=== PATIENT | female | born 1935 | race Caucasian/White ===

== ENCOUNTER → 2016-09-01 | Outpatient (CLI) | payer OTHER ==
[~2016-09-01] MED LIST: ASPEC81 PO; CALC200T PO; GABA-112 PO; LACT3000 PO; MECL1TAB40 PO; OMEG10007 PO; PRLSR20 PO; SIMV40TA2 PO; TRAM-10 PO
--- NOTE | 2016-09-01 13:01 | DIAGNOSTIC IMAGING REPORT ---
ULTRASOUND LEFT VENOUS DOPP LOWER EXT UNILAT CLINICAL HISTORY: Left leg pain and swelling COMPARISON STUDY: No previous studies for comparison. FINDINGS: Real-time and color flow Doppler imaging were performed. Flow was seen within the femoral, popliteal and calf veins with no intraluminal thrombus demonstrated. The saphenous vein is patent. IMPRESSION: No evidence of left lower extremity DVT. Electronically signed by: Ruddy Garcia M.D. 09/01/2016 1:00 PM Dictated Date/Time: 09/01/2016 1:00 PM
== END | disposition home or self-care (01) ==
LOC: C.ULTRBC 12:31
PROVIDERS: ATTEND Internal Medicine
DX: M79.662 Pain in left lower leg (principal)

== ENCOUNTER 2018-01-19 09:03 | Observation (INO) | payer OTHER ==
[~2018-01-19] VITALS: Ht 149.9 cm; Wt 59.7 kg
[~2018-01-19 09:03] MED LIST changes: -OMEG10007 PO
--- NOTE | 2018-01-19 09:44 | EMERGENCY ROOM VISIT NOTE ---
History Report prepared by Kevin: Marlee Maldonado Under the Supervision of: Dr. Jon Donahue M.D. First contact with patient: 09:34 Chief Complaint: CARDIAC ASSESSMENT Stated Complaint: CHEST PRESSURE History of Present Illness The patient is a 82 year old female who presents to the Emergency Room with complaints of an episode of chest pain beginning yesterday. She notes the pain began her chest, and extended up around her shoulder to her shoulder blade. The patient describes the pain as a pinching feeling, and states it began while she was walking from her car to her house. She notes she also felt a little "fuzzy" . She denies any current chest pain. The patient reports nitroglycerin mostly resolved her symptoms. She is currently not experiencing any chest pain. The patient was seen by her PCP, Dr. Del Angel, this morning, who referred her to the ED. She reports she was given 4 baby Aspirin at the office this morning. The patient states she did not take her blood pressure medicine or any other medicine this morning. She notes history of a stent put in 6 years ago, by Dr. Arnel Wan. She notes she does not currently take any blood thinners. Source of History: patient, family (daughters) Onset: yesterday Position: chest Quality: other (pinching) Timing: other (episode) Modifying Factors (Relieving): other (nitroglycerin) Note: Associated symptom: feeling "fuzzy" Review of Systems See HPI for pertinent positives & negatives. A total of 10 systems reviewed and were otherwise negative. Past Medical & Surgical Medical Problems: (1) Arthritis (2) Atypical chest pain (3) Chronic back pain (4) DIVERTICULOSIS COLON (W/O MENT OF HEMORRHAGE) (5) Gastroesophageal reflux disease (6) Hyperlipidemia (7) Hypothyroidism (8) Idiopathic osteoporosis (9) Lumbar disc lesion (10) Megaloblastic anemia due to vitamin B>12< deficiency (11) negative cardiac cath (12) Rectal prolapse Surgical Problems: (1) History of cholecystectomy Family History Heart disease Hypertension Social History Smoking Status: Never Smoker Alcohol Use: occasionally Drug Use: none Marital Status: Housing Status: lives with family Occupation Status: unemployed Current/Historical Medications Scheduled Aspirin (Aspirin Ec), 81 MG PO DAILY Calcium Carbonate-Vitamin D (Oscal 500/200 D-3), 1 TAB PO DAILY Fish Oil ([place]-3), 1 CAP PO QAM Gabapentin (Neurontin), 200 MG PO BID Omeprazole (Prilosec), 20 MG PO BID Simvastatin (Zocor), 40 MG PO HS Tramadol (Ultram), 50 MG PO Q6HR PRN Scheduled PRN Lactase (Lactaid), 1 CAP PO WM PRN for LACTOSE INTOLERANCE Meclizine Hcl (Meclizine Hcl), 12.5 MG PO Q6 PRN for Dizziness or Vertigo Allergies Coded Allergies: Lactose Intolerance (GI) (Unverified Allergy, Unknown, ., 01/19/18) Prednisone (Unverified Allergy, Unknown, DIZZY, "LOOPY", 01/19/18) Physical Exam Vital Signs Date Time Temp Pulse Resp B/P (MAP) Pulse Ox O2 Delivery O2 Flow Rate FiO2 01/19/18 11:27 64 18 142/76 92 Room Air 01/19/18 10:37 58 18 152/61 95 Room Air 01/19/18 09:57 96 Room Air 01/19/18 09:49 96 Room Air 01/19/18 09:31 64 01/19/18 09:21 96 Room Air 01/19/18 09:09 36.6 57 18 195/75 98 Room Air Physical Exam GENERAL: Awake, alert, well-appearing, in no acute distress HENT: Normocephalic, atraumatic. Oropharynx unremarkable. EYES: Normal conjunctiva. Sclera non-icteric. NECK: Supple. No nuchal rigidity. FROM. No JVD. RESPIRATORY: Clear to auscultation. CARDIAC: Regular rate, normal rhythm. Extremities warm and well perfused. Pulses equal. ABDOMEN: Soft, non-distended. No tenderness to palpation. No rebound or guarding. No masses. RECTAL: Deferred. MUSCULOSKELETAL: Chest examination reveals no tenderness. The back is symmetrical on inspection without obvious abnormality. There is no CVA tenderness to palpation. No joint edema. LOWER EXTREMITIES: Calves are equal size bilaterally and non-tender. No edema. No discoloration. NEURO: Normal sensorium. No sensory or motor deficits noted. SKIN: No rash or jaundice noted. Medical Decision & Procedures ER Provider Diagnostic Interpretation: Radiology results as stated below per my review and radiologist interpretation: SINGLE VIEW CHEST CLINICAL HISTORY: Atypical chest pain. FINDINGS: An AP, portable, upright chest radiograph is compared to study dated 02/16/2014 and correlated with chest CT dated 03/04/2011. The examination is degraded by portable technique and apical lordotic positioning. The heart is enlarged and there is atherosclerotic calcification of the thoracic aorta. The pulmonary vasculature is noncongested. Chronic interstitial thickening is similar to previous. No airspace consolidation or large pleural effusion is identified. No pneumothorax is seen. The skeletal structures are osteopenic. The bony thorax is grossly intact. Cholecystectomy clips are seen in the right upper quadrant. IMPRESSION: Cardiomegaly with no acute cardiopulmonary abnormality. Electronically signed by: Vinny Bazzi M.D. 01/19/2018 10:19 AM Dictated Date/Time: 01/19/2018 10:18 AM Laboratory Results Test 01/19/18 10:31 Immature Granulocyte % (Auto) 0.1 % White Blood Count 7.02 K/uL (4.8-10.8) Red Blood Count 4.08 M/uL (4.2-5.4) Hemoglobin 11.3 g/dL (12.0-16.0) Hematocrit 33.8 % (37-47) Mean Corpuscular Volume 82.8 fL (80-100) Mean Corpuscular Hemoglobin 27.7 pg (25-34) Mean Corpuscular Hemoglobin Concent 33.4 g/dl (32-36) Platelet Count 237 K/uL (130-400) Mean Platelet Volume 10.2 fL (7.4-10.4) Neutrophils (%) (Auto) 52.8 % Lymphocytes (%) (Auto) 34.9 % Monocytes (%) (Auto) 6.3 % Eosinophils (%) (Auto) 5.6 % Basophils (%) (Auto) 0.3 % Neutrophils # (Auto) 3.71 K/uL (1.4-6.5) Lymphocytes # (Auto) 2.45 K/uL (1.2-3.4) Monocytes # (Auto) 0.44 K/uL (0.11-0.59) Eosinophils # (Auto) 0.39 K/uL (0-0.5) Basophils # (Auto) 0.02 K/uL (0-0.2) Immature Granulocyte # (Auto) 0.01 K/uL (0.00-0.02) Platelet Estimate NORMAL Total Bilirubin 0.3 mg/dl (0.2-1) Direct Bilirubin 0.1 mg/dl (0-0.2) Aspartate Amino Transf (AST/SGOT) 13 U/L (15-37) Alanine Aminotransferase (ALT/SGPT) 14 U/L (12-78) Alkaline Phosphatase 60 U/L (45-117) Total Creatine Kinase 57 U/L (26-192) Creatine Kinase MB 1.6 ng/ml (0.5-3.6) Creatine Kinase MB Ratio 2.8 (0-3.0) Total Protein 6.8 gm/dl (6.4-8.2) Albumin 3.4 gm/dl (3.4-5.0) Lipase 126 U/L (73-393) Labs reviewed by ED physician. Medications Administered Medications (Trade) Dose Ordered Sig/Ilya Route Start Time Stop Time Status Last Admin Dose Admin Nitroglycerin (Nitrostat Tab) 0.4 mg PRN STAT SL 01/19/18 09:45 01/19/18 09:47 DC 01/19/18 09:45 0.4 MG ECG Per My Interpretation Indication: chest pain Rate (beats per minute): 66 Rhythm: normal sinus Findings: T-wave inversion (Lateral), other (no ST elevation. no ST depression. ) Change: no significant change (from 02/27/2014) ED Course 0936: Past medical records reviewed. The patient was evaluated in room C1A. A complete history and physical examination was performed. 1125: I discussed the patient's case with Shi Matt PA-C, [facility] hospitalist. She has agreed to evaluate the patient for further management and care. 1126: I updated the patient and her daughters. They agree with the treatment plan. 1142: I discussed the case with Dr. Seals, [facility] cardiology. He agrees with the current treatment plan. Medical Decision Differential diagnosis: Etiologies such as cardiac ischemia, aortic dissection, pulmonary embolism, pneumonia, pneumothorax, musculoskeletal, infections, pericarditis, myocarditis , esophageal rupture, gastrointestinal, as well as others were entertained. This is an 82-year-old female with a history of a cardiac stent presents emergency department with chest pain that was relieved by nitro. She has a normal CK-MB and troponin as well as EKG. Based on these findings I did discuss the case with the hospitalist service who agreed to admit the patient. Patient and family were in agreement with the treatment plan. Medication Reconcilliation Current Medication List: was personally reviewed by me Blood Pressure Screening Patient's blood pressure: Elevated blood pressure Blood pressure disposition: Referred to PCP (referred to hospitalist) Consults Time Called: 1115 Consulting Physician: Shi Matt PA-C, [facility] hospitalist Returned Call: 1125 I discussed the patient's case with Shi Matt PA-C, [facility] hospitalist. She has agreed to evaluate the patient for further management and care. Additional Consults: Time Called: 1130 Consulted Physician: [facility] Returned Call: 1142 Additional Comments: I discussed the case with [facility] cardiology. He agrees with the current treatment plan. Impression Primary Impression: Chest pain Scribe Attestation The scribe's documentation has been prepared under my direction and personally reviewed by me in its entirety. I confirm that the note above accurately reflects all work, treatment, procedures, and medical decision making performed by me. Departure Information Dispostion Being Evaluated By Hospitalist Referrals Seamus Del Angel D.O. (PCP) Patient Instructions My [facility] Problem Qualifiers Primary Impression: Chest pain Chest pain type: unspecified Qualified Codes: R07.9 - Chest pain, unspecified
[2018-01-19] MEDS ORDERED: NITROGLYCERIN 0.4 MG SL PER TAB CHARGE SL STA (09:45)
[2018-01-19] MEDS ORDERED: ASPI81TA28 PO (10:21)
--- NOTE | 2018-01-19 10:21 | DIAGNOSTIC IMAGING REPORT ---
SINGLE VIEW CHEST CLINICAL HISTORY: Atypical chest pain. FINDINGS: An AP, portable, upright chest radiograph is compared to study dated 02/16/2014 and correlated with chest CT dated 03/04/2011. The examination is degraded by portable technique and apical lordotic positioning. The heart is enlarged and there is atherosclerotic calcification of the thoracic aorta. The pulmonary vasculature is noncongested. Chronic interstitial thickening is similar to previous. No airspace consolidation or large pleural effusion is identified. No pneumothorax is seen. The skeletal structures are osteopenic. The bony thorax is grossly intact. Cholecystectomy clips are seen in the right upper quadrant. IMPRESSION: Cardiomegaly with no acute cardiopulmonary abnormality. Electronically signed by: Vinny Bazzi M.D. 01/19/2018 10:19 AM Dictated Date/Time: 01/19/2018 10:18 AM
[2018-01-19 11:07] LABS: ALBUMIN 3.4 gm/dl (3.4-5.0); ALKALINE PHOSPHATASE 60 U/L (45-117); ALT/SGPT 14 U/L (12-78); AST/SGOT 13 U/L (15-37); BLOOD UREA NITROGEN 17 mg/dl (7-18); CALCIUM 8.5 mg/dl (8.5-10.1); CARBON DIOXIDE 27 mmol/L (21-32); CKMB 1.6 ng/ml (0.5-3.6); CREATININE 0.72 mg/dl (0.60-1.20); GLUCOSE 101 mg/dl (70-99); LIPASE 126 U/L (73-393); POTASSIUM 4.4 mmol/L (3.5-5.1); SODIUM 142 mmol/L (136-145); TOTAL PROTEIN 6.8 gm/dl (6.4-8.2)
[2018-01-19 11:08] LABS: HEMATOCRIT 33.8 % (37-47); HEMOGLOBIN 11.3 g/dL (12.0-16.0); MEAN CELL VOLUME 82.8 fL (80-100); MEAN CORPUSCULAR HEMOGLOBIN 27.7 pg (25-34); MEAN CORPUSCULAR HGB CONC 33.4 g/dl (32-36); MEAN PLATELET VOLUME 10.2 fL (7.4-10.4); PLATELET COUNT 237 K/uL (130-400); RED CELL DISTRIBUTION WIDTH CV 13.4 % (11.5-14.5); RED CELL DISTRIBUTION WIDTH SD 40.6 fL (36.4-46.3); WHITE BLOOD COUNT 7.02 K/uL (4.8-10.8)
[2018-01-19 11:12] LABS: BASO % 0.3 %; BASO ABS # 0.02 K/uL (0-0.2); EOS % 5.6 %; EOS ABS # 0.39 K/uL (0-0.5); IG# 0.01 K/uL (0.00-0.02); LYMPH % 34.9 %; LYMPH ABS # 2.45 K/uL (1.2-3.4); MONO % 6.3 %; MONO ABS # 0.44 K/uL (0.11-0.59); NEUT % 52.8 %; NEUT ABS # 3.71 K/uL (1.4-6.5)
[2018-01-19 11:38] VITALS: O2SAT 93; BMI 27.0
[2018-01-19 12:08] VITALS: BP 177/70; PULSE 82; TEMP 36.4; O2SAT 93; Ht 149.9 cm; Wt 59.7 kg
[2018-01-19] MEDS ORDERED: IV FLUIDS COMPLETED PRN (13:45)
[2018-01-19] MEDS ORDERED: ACETAMINOPHEN 325 MG TAB PO PRN (14:45)
[2018-01-19] MEDS ORDERED: NITROGLYCERIN 0.4 MG SL PER TAB CHARGE SL PRN (14:45)
[2018-01-19] MEDS ORDERED: ONDANSETRON INJ 2 MG/ML 2 ML VIAL IV PRN (14:45)
[2018-01-19 14:51] VITALS: BP 162/70; PULSE 62; TEMP 36.6; O2SAT 96
--- NOTE | 2018-01-19 14:59 | History and Physical ---
History & Physical Date & Time of Service: Jan 19, 2018 at 14:43 Chief Complaint: Chest Pain Primary Care Physician: Seamus Del Angel D.O. History of Present Illness Source: patient She is an 82-year-old female with a significant past medical history of hypertension, hyperlipidemia, osteoarthritis, vitamin B12 deficiency anemia and Carotid stenosis apparently has been complaining of chest pain that happened once last night. She was not doing anything physical but got the precordial pain which was sharp and lasted for a few seconds. Pain radiated to the back and did have some shortness of breath with it the pain is relieved by sublingual nitro 1. She went to see her primary care doctor today and with the symptoms and questionable EKG changes she was advised for admission. Denies to have any more pain since last night and no other associated symptoms Past Medical/Surgical History Medical Problems: (1) Arthritis (2) Benign essential hypertension (3) Chest pain (4) Chronic back pain (5) DIVERTICULOSIS COLON (W/O MENT OF HEMORRHAGE) (6) Dizziness (7) Dizziness (8) Dizziness (9) Dizziness (10) Dyslipidemia (11) Gastroesophageal reflux disease (12) Hyperlipidemia (13) Hypertension (14) Hypertension (15) Hypomagnesemia (16) Hypothyroidism (17) Idiopathic osteoporosis (18) Localized, primary osteoarthritis of the shoulder region (19) Lumbar disc lesion (20) Megaloblastic anemia due to vitamin B>12< deficiency (21) mild LAD disease (22) negative cardiac cath (23) Non-toxic multinodular goiter (24) Rectal prolapse (25) SHORTNESS OF BREATH (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 Surgical Problems: (1) History of cholecystectomy Family History Heart disease Hypertension Social History Smoking Status: Never Smoker Smokeless Tobacco Use: No Alcohol Use: none Drug Use: none Marital Status: Housing status: lives with family Occupational Status: unemployed Immunizations History of Influenza Vaccine: Yes History of Tetanus Vaccine?: Yes History of Pneumococcal: Yes History of Hepatitis B Vaccine: No Allergies Coded Allergies: Lactose Intolerance (GI) (Unverified Allergy, Unknown, ., 01/19/18) Prednisone (Unverified Allergy, Unknown, DIZZY, "LOOPY", 01/19/18) Home Medications Scheduled Aspirin (Aspirin Ec), 81 MG PO DAILY Calcium Carbonate-Vitamin D (Oscal 500/200 D-3), 1 TAB PO DAILY Fish Oil ([place]-3), 1 CAP PO QAM Gabapentin (Neurontin), 200 MG PO BID Omeprazole (Prilosec), 20 MG PO BID Simvastatin (Zocor), 40 MG PO HS Tramadol (Ultram), 50 MG PO Q6HR PRN Scheduled PRN Lactase (Lactaid), 1 CAP PO WM PRN for LACTOSE INTOLERANCE Meclizine Hcl (Meclizine Hcl), 12.5 MG PO Q6 PRN for Dizziness or Vertigo Review of Systems Constitutional: + problem reported (Sharp precordial pain for a few seconds last night) Cardiovascular: + chest pain Musculoskeletal: + joint pain (Back pain) Psychiatric: + anxiety Physical Exam Vital Signs Date Time Temp Pulse Resp B/P (MAP) Pulse Ox O2 Delivery O2 Flow Rate FiO2 01/19/18 12:08 36.4 82 18 177/70 (105) 93 Room Air 01/19/18 12:08 36.4 82 18 177/70 93 Room Air 01/19/18 12:08 93 Room Air 01/19/18 11:38 93 Room Air 01/19/18 11:27 64 18 142/76 92 Room Air 01/19/18 10:37 58 18 152/61 95 Room Air 01/19/18 09:57 96 Room Air 01/19/18 09:49 96 Room Air 01/19/18 09:31 64 01/19/18 09:21 96 Room Air 01/19/18 09:09 36.6 57 18 195/75 98 Room Air General Appearance: no apparent distress Head: normocephalic Eyes: normal inspection ENT: normal ENT inspection Neck: supple Respiratory/Chest: chest non-tender, lungs clear, normal breath sounds Cardiovascular: regular rate, rhythm, no edema, no murmur, normal peripheral pulses Abdomen/GI: normal bowel sounds Back: normal inspection Extremities/Musculoskelatal: normal inspection, no pedal edema Neurologic/Psych: [employer] II-XII nml as tested, no motor/sensory deficits, alert, oriented x 3 Skin: normal color Diagnostics Laboratory Results Results Past 24 Hours Test 01/19/18 10:31 Range/Units White Blood Count 7.02 4.8-10.8 K/uL Red Blood Count 4.08 4.2-5.4 M/uL Hemoglobin 11.3 12.0-16.0 g/dL Hematocrit 33.8 37-47 % Mean Corpuscular Volume 82.8 80-100 fL Mean Corpuscular Hemoglobin 27.7 25-34 pg Mean Corpuscular Hemoglobin Concent 33.4 32-36 g/dl Platelet Count 237 130-400 K/uL Mean Platelet Volume 10.2 7.4-10.4 fL Neutrophils (%) (Auto) 52.8 % Lymphocytes (%) (Auto) 34.9 % Monocytes (%) (Auto) 6.3 % Eosinophils (%) (Auto) 5.6 % Basophils (%) (Auto) 0.3 % Neutrophils # (Auto) 3.71 1.4-6.5 K/uL Lymphocytes # (Auto) 2.45 1.2-3.4 K/uL Monocytes # (Auto) 0.44 0.11-0.59 K/uL Eosinophils # (Auto) 0.39 0-0.5 K/uL Basophils # (Auto) 0.02 0-0.2 K/uL RDW Standard Deviation 40.6 36.4-46.3 fL RDW Coefficient of Variation 13.4 11.5-14.5 % Immature Granulocyte % (Auto) 0.1 % Immature Granulocyte # (Auto) 0.01 0.00-0.02 K/uL Platelet Estimate NORMAL Sodium Level 142 136-145 mmol/L Potassium Level 4.4 3.5-5.1 mmol/L Chloride Level 109 98-107 mmol/L Carbon Dioxide Level 27 21-32 mmol/L Anion Gap 6.0 3-11 mmol/L Blood Urea Nitrogen 17 7-18 mg/dl Creatinine 0.72 0.60-1.20 mg/dl Est Creatinine Clear Calc Drug Dose 49.4 ml/min Estimated GFR () 91.7 Estimated GFR (Non- 79.1 BUN/Creatinine Ratio 23.8 10-20 Random Glucose 101 70-99 mg/dl Calcium Level 8.5 8.5-10.1 mg/dl Total Bilirubin 0.3 0.2-1 mg/dl Direct Bilirubin 0.1 0-0.2 mg/dl Aspartate Amino Transf (AST/SGOT) 13 15-37 U/L Alanine Aminotransferase (ALT/SGPT) 14 12-78 U/L Alkaline Phosphatase 60 45-117 U/L Total Creatine Kinase 57 26-192 U/L Creatine Kinase MB 1.6 0.5-3.6 ng/ml Creatine Kinase MB Ratio 2.8 0-3.0 Troponin I < 0.015 0-0.045 ng/ml Total Protein 6.8 6.4-8.2 gm/dl Albumin 3.4 3.4-5.0 gm/dl Lipase 126 73-393 U/L CXR normal EKG Bradycardia ,SR with Inferior Ischemic change Impression Assessment and Plan Atypical chest pain: 1 episode yesterday Possible inferior ischemic changes on EKG without any elevation of troponin Admitted to telemetry unit Serial cardiac enzymes Schedule dobutamine stress echo tomorrow morning Hypertension Continue current medications Blood pressure seems to be stable Hyperlipidemia Continue with the statin Carotid artery disease No acute symptoms Continue aspirin Chronic back pain No acute radiculopathy Cannot walk on a treadmill so he get dobutamine stress echo tomorrow DVT prophylaxis with the subcu heparin CODE STATUS: Full In my clinical assessment the beneficially meets criteria as per CMS for 2 midnight stay in the hospital Advanced Directives Existing Living Will: Yes Existing Power of [employer] Specialist: Yes Resuscitation Status Full Code VTE Prophylaxis Will order VTE Prophylaxis: Yes
[2018-01-19] MEDS ORDERED: LACTASE 3000 UNIT TAB PO PRN (15:15)
[2018-01-19] MEDS ORDERED: MECLIZINE HCL 12.5 MG TAB PO PRN (15:15)
[2018-01-19] MEDS ORDERED: TRAMADOL HCL 50 MG TAB PO PRN (15:15)
[2018-01-19 15:59] LABS: PTT PATIENT 26.3 SECONDS (21.0-31.0)
[2018-01-19] MEDS ORDERED: PNEUMOCOCCAL ADMINISTRATION CHARGE ONE (16:00)
[2018-01-19] MEDS ORDERED: PNEUMOCOCCAL POLYSACCHARIDES 25 MCG/0.5 ML VIAL/SYR IM. ONE (16:00)
[2018-01-19] MEDS ORDERED: OMEG10007 PO (16:15)
[2018-01-19] MEDS ORDERED: AMLODIPINE BESYLATE 5 MG TAB PO ONE (19:45)
[2018-01-19] MEDS ORDERED: CLONIDINE HCL 0.1 MG TAB PO PRN (19:45)
[2018-01-19 20:13] VITALS: BP 182/70; PULSE 62; TEMP 36.7; O2SAT 96
[2018-01-19 20:26] VITALS: BP 194/47; PULSE 66
[2018-01-19] MEDS: PANTOprazole SOD 40 MG TAB PO SCH (20:51)
[2018-01-19] MEDS: GABAPENTIN 100 MG CAP PO SCH (20:51)
[2018-01-19] MEDS: HEPARIN SOD 5000 UNIT/0.5 ML CARP SQ SCH (20:55)
[2018-01-19] MEDS ORDERED: SIMVASTATIN 40 MG TAB PO SCH (21:00)
[2018-01-19 23:30] VITALS: BP 156/80; PULSE 52; TEMP 36.7; O2SAT 97
[2018-01-20 04:02] VITALS: BP 124/65; PULSE 66; TEMP 36.6; O2SAT 96
[2018-01-20 04:42] LABS: HEMATOCRIT 34.7 % (37-47); HEMOGLOBIN 11.4 g/dL (12.0-16.0); MEAN CELL VOLUME 83.8 fL (80-100); MEAN CORPUSCULAR HEMOGLOBIN 27.5 pg (25-34); MEAN CORPUSCULAR HGB CONC 32.9 g/dl (32-36); PLATELET COUNT 211 K/uL (130-400); RED CELL DISTRIBUTION WIDTH CV 13.3 % (11.5-14.5); RED CELL DISTRIBUTION WIDTH SD 40.4 fL (36.4-46.3); WHITE BLOOD COUNT 6.96 K/uL (4.8-10.8)
[2018-01-20 05:09] LABS: BLOOD UREA NITROGEN 19 mg/dl (7-18); CALCIUM 8.3 mg/dl (8.5-10.1); CARBON DIOXIDE 26 mmol/L (21-32); CREATININE 0.72 mg/dl (0.60-1.20); GLUCOSE 109 mg/dl (70-99); POTASSIUM 3.7 mmol/L (3.5-5.1); SODIUM 139 mmol/L (136-145)
[2018-01-20] MEDS: HEPARIN SOD 5000 UNIT/0.5 ML CARP SQ SCH ×2 (06:32→14:00)
[2018-01-20 07:22] VITALS: BP 118/64; PULSE 65; TEMP 36.5; O2SAT 99
[2018-01-20] MEDS: GABAPENTIN 100 MG CAP PO SCH (07:25)
[2018-01-20] MEDS: PANTOprazole SOD 40 MG TAB PO SCH (07:26)
[2018-01-20] MEDS ORDERED: CALCIUM 600MG + VIT D 400 IU TAB PO SCH (09:00)
[2018-01-20] MEDS ORDERED: LISINOPRIL 5 MG TAB PO SCH (09:00)
[2018-01-20] MEDS ORDERED: ASPIRIN 81 MG ECTAB PO SCH (09:00)
[2018-01-20] MEDS ORDERED: ATROPINE SULFATE 0.1 MG/ML 10 ML SYR ONE (09:13)
[2018-01-20] MEDS ORDERED: METOPROLOL TARTRATE 1 MG/ML VIAL ONE (09:13)
[2018-01-20] MEDS ORDERED: DOBUTamine HCL 12.5 MG/ML 20 ML VIAL ONE (09:13)
[2018-01-20 11:44] VITALS: BP_SYST 100; BP_SYST 129; BP_DIAS 63; BP_DIAS 65; PULSE 54; TEMP 36.5; O2SAT 99
--- NOTE | 2018-01-20 12:36 | DOBUTAMINE ECHO ---
*NOTICE TO RECEIVING [employer] This information is strictly Confidential and protected under [place] law. [place] law prohibits you from making any further disclosure of this information unless further disclosure is expressly permitted by the written consent of the person to whom it pertains or is authorized by law. A general authorization for the release of medical or other information is not sufficient for this purpose. Hospital accepts no responsibility if the information is made available to any other person, INCLUDING THE PATIENT. Interpretation Summary * Name: SIMRAN CHAU Study Date: 01/20/2018 09:32 AM BP: 124/52 mmHg * Patient Location: [facility] HR: 53 * : 1935 (M/d/yyyy) Gender: Female Height: 59 in * Age: 82 yrs Ethnicity: CA Weight: 133 lb * Ordering Physician: SAL REED MD * Performed By: Irasema Hanson RCS * * Reason For Study: CHEST PAIN * BSA: 1.6 m2 * -- Conclusions -- * There is an adequate heart rate and blood pressure response to dobutamine stress achieving greater than 85% age-predicted maximum heart rate * Stress ECG: No ST changes. No arrhythmias. * Arrhythmia induced during stress: occasional PVC's. * There is subtle hypokinesis of the inferior wall at the base at rest. All wall segments are hyperdynamic with stress including the inferior wall without stress-induced abnormality to suggest ischemia * The left ventricular ejection fraction increases normally with stress. The left ventricular end-systolic cavity size reduces post-stress (normal response). The left ventricular wall motion with stress is normal. * There is moderate concentric left ventricular hypertrophy. * Left ventricular systolic function is normal. * Ejection Fraction = 60-65%. * Aortic valve sclerosis mild, without significant aortic valvular stenosis. Procedure Details * DOBUTAMINE ECHO, CPT#[id number] * ECHO COLOR FLOW, CPT #[id number] * ECHO DOPPLER, CPT #[id number] Left Ventricle * The left ventricle is normal in size. * There is moderate concentric left ventricular hypertrophy. * Left ventricular systolic function is normal. * Ejection Fraction = 60-65%. * The left ventricular ejection fraction increases normally with stress. The left ventricular end-systolic cavity size reduces post-stress (normal response). The left ventricular wall motion with stress is normal. * There is subtle hypokinesis of the inferior wall at the base at rest. All wall segments are hyperdynamic with stress including the inferior wall without stress-induced abnormality to suggest ischemia Right Ventricle * The right ventricle is normal in size and function. Atria * Borderline left atrial enlargement. * Right atrial size is normal. * No ASD detected; PFO is not assessed. Mitral Valve * The mitral valve anatomy is normal. * There is no mitral valve stenosis. * There is trace mitral regurgitation. Tricuspid Valve * The tricuspid valve is normal. * There is no tricuspid stenosis. * Significant tricuspid regurgitation is absent. Aortic Valve * The aortic valve is trileaflet. * Aortic valve sclerosis mild, without significant aortic valvular stenosis. * There is no significant aortic regurgitation. Pulmonic Valve * The pulmonary valve is not well seen, but the Doppler examination is normal without significant regurgitation or stenosis. Great Vessels * The aortic root and proximal ascending aorta are normal sized. Pericardium * There is no pericardial effusion. Stress Parameters * Normal baseline electrocardiogram. * Stress ECG: No ST changes. No arrhythmias. * Arrhythmia induced during stress: occasional PVC's. * The stress portion of this study was personally supervised by the undersigned interpreting physician. * Rest heart rate was '53' BPM. * Rest blood pressure was '124/52' * Maximum heart rate achieved was 137 bpm. * Maximum heart rate was 97 % of maximum age-predicted heart rate. * Maximum blood pressure was '159/36' * Maximum Dobutamine infusion rate was '40' mcg/kg/min. * A total of 0 mg of intravenous Atropine was used to supplement Dobutamine for heart rate response. * Dobutamine infusion was terminated due to achieving target heart rate * A total of 2.5 mg of IV Metoprolol was administered to reverse Dobutamine-induced tachycardia. MMode 2D Measurements and Calculations IVSd 1.5 cm IVSs 1.7 cm LVIDd 3.5 cm LVIDs 2.6 cm LVPWd 1.2 cm LVPWs 1.4 cm IVS/LVPW 1.2 FS 25.5 % EDV(Teich) 51.9 ml ESV(Teich) 25.3 ml EF(Teich) 51.2 % EDV(cubed) 43.9 ml ESV(cubed) 18.2 ml EF(cubed) 58.6 % % IVS thick 14.0 % % LVPW thick 11.7 % LV mass(C)d 168.1 grams LV mass(C)dI 108.4 grams/m\S\2 LV mass(C)s 140.7 grams LV mass(C)sI 90.8 grams/m\S\2 SV(Teich) 26.5 ml SI(Teich) 17.1 ml/m\S\2 SV(cubed) 25.7 ml SI(cubed) 16.6 ml/m\S\2 Ao root diam 2.5 cm Ao root area 5.0 cm\S\2 LA dimension 4.7 cm LA/Ao 1.9 LVOT diam 2.0 cm LVOT area 3.2 cm\S\2 LVAd ap4 21.7 cm\S\2 LVLd ap4 6.2 cm EDV(MOD-sp4) 63.5 ml EDV(sp4-el) 64.8 ml LVAs ap4 14.6 cm\S\2 LVLs ap4 5.6 cm ESV(MOD-sp4) 32.6 ml ESV(sp4-el) 32.3 ml EF(MOD-sp4) 48.7 % EF(sp4-el) 50.2 % LVAd ap2 16.5 cm\S\2 LVLd ap2 5.8 cm EDV(MOD-sp2) 40.7 ml EDV(sp2-el) 40.4 ml LVAs ap2 10.1 cm\S\2 LVLs ap2 4.4 cm ESV(MOD-sp2) 21.1 ml ESV(sp2-el) 20.0 ml EF(MOD-sp2) 48.1 % EF(sp2-el) 50.6 % LVLd %diff -7.65 % EDV(MOD-bp) 52.8 ml LVLs %diff -27.42 % ESV(MOD-bp) 29.0 ml EF(MOD-bp) 45.1 % SV(MOD-sp4) 30.9 ml SI(MOD-sp4) 19.9 ml/m\S\2 SV(MOD-sp2) 19.6 ml SI(MOD-sp2) 12.6 ml/m\S\2 SV(MOD-bp) 23.8 ml SI(MOD-bp) 15.4 ml/m\S\2 SV(sp4-el) 32.5 ml SI(sp4-el) 21.0 ml/m\S\2 SV(sp2-el) 20.5 ml SI(sp2-el) 13.2 ml/m\S\2 Doppler Measurements and Calculations MV E max wallace 93.8 cm/sec MV A max wallace 72.3 cm/sec MV E/A 1.3 MV P1/2t max wallace 92.3 cm/sec MV P1/2t 92.6 msec MVA(P1/2t) 2.4 cm\S\2 MV dec slope 292.1 cm/sec\S\2 MV dec time 0.23 sec Ao V2 max 138.7 cm/sec Ao max PG 7.7 mmHg Ao max PG (full) 5.4 mmHg SERA(V,A) 1.7 cm\S\2 SERA(V,D) 1.7 cm\S\2 LV V1 max PG 2.3 mmHg LV V1 max 76.0 cm/sec PA V2 max 85.4 cm/sec PA max PG 2.9 mmHg PI max wallace 131.1 cm/sec PI max PG 6.9 mmHg PI dec slope 73.8 cm/sec\S\2 PI P1/2t 520.3 msec TR max wallace 270.0 cm/sec
--- NOTE | 2018-01-20 13:53 | Progress Note ---
Internal Med Progress Note Date of Service: Jan 20, 2018. Provider Documentation: SUBJECTIVE: The patient was seen and examined in telemetry unit She was admitted yesterday with brief episode of chest pain Initial EKG questionable lateral T inversion Remained free from pain in the hospital and serial cardiac enzymes negative Underwent a DSE today which was negative OBJECTIVE: Vital Signs-as noted below Exam: General-no apparent distress Eyes-normal ENT-normal Neck-supple Lungs-clear to auscultate bilaterally Heart-regular Abdomen-benign Extremities-no edema Neuro-alert, awake and oriented 3 No focal sensory and/or motor deficit Lab data as noted below. ASSESSMENT & PLAN: Atypical chest pain: 1 episode yesterday Possible inferior ischemic changes on EKG without any elevation of troponin Admitted to telemetry unit Serial cardiac enzymes Schedule dobutamine stress echo tomorrow morning Underwent DSE this morning and that was reported normal ::: There is an adequate heart rate and blood pressure response to dobutamine stress achieving greater than 85% age-predicted maximum heart rate * Stress ECG: No ST changes. No arrhythmias. * Arrhythmia induced during stress: occasional PVC's. * There is subtle hypokinesis of the inferior wall at the base at rest. All wall segments are hyperdynamic with stress including the inferior wall without stress-induced abnormality to suggest ischemia * The left ventricular ejection fraction increases normally with stress. The left ventricular end-systolic cavity size reduces post-stress (normal response). The left ventricular wall motion with stress is normal. * There is moderate concentric left ventricular hypertrophy. * Left ventricular systolic function is normal. * Ejection Fraction = 60-65%. * Aortic valve sclerosis mild, without significant aortic valvular stenosis. Hypertension Continue current medications Blood pressure seems to be stable Hyperlipidemia Continue with the statin Carotid artery disease No acute symptoms Continue aspirin Chronic back pain No acute radiculopathy Cannot walk on a treadmill so he get dobutamine stress echo tomorrow DVT prophylaxis with the subcu heparin We will discharge her home today No change in medications Follow up appointments made Vital Signs: Date Time Temp Pulse Resp B/P (MAP) Pulse Ox O2 Delivery O2 Flow Rate FiO2 01/20/18 14:17 36.5 54 16 99 Room Air 01/20/18 11:44 36.5 54 16 100/63 (75) 99 Room Air 129/65 (86) 01/20/18 08:00 Room Air 01/20/18 07:22 36.5 65 16 118/64 (82) 99 01/20/18 04:02 36.6 66 18 124/65 (84) 96 Room Air 01/20/18 04:00 Room Air 01/20/18 00:00 Room Air 01/19/18 23:30 36.7 52 18 156/80 (105) 97 Room Air 01/19/18 20:26 66 194/47 (96) 01/19/18 20:13 36.7 62 18 182/70 (107) 96 Room Air 01/19/18 16:00 Room Air Lab Results: Results Past 24 Hours Test 01/19/18 15:37 01/19/18 22:31 01/20/18 04:30 Range/Units Prothrombin Time 10.8 9.0-12.0 SECONDS Prothromb Time International Ratio 1.0 0.9-1.1 Activated Partial Thromboplast Time 26.3 21.0-31.0 SECONDS Partial Thromboplastin Ratio 1.0 Troponin I < 0.015 < 0.015 < 0.015 0-0.045 ng/ml White Blood Count 6.96 4.8-10.8 K/uL Red Blood Count 4.14 4.2-5.4 M/uL Hemoglobin 11.4 12.0-16.0 g/dL Hematocrit 34.7 37-47 % Mean Corpuscular Volume 83.8 80-100 fL Mean Corpuscular Hemoglobin 27.5 25-34 pg Mean Corpuscular Hemoglobin Concent 32.9 32-36 g/dl RDW Standard Deviation 40.4 36.4-46.3 fL RDW Coefficient of Variation 13.3 11.5-14.5 % Platelet Count 211 130-400 K/uL Mean Platelet Volume 9.0 7.4-10.4 fL Sodium Level 139 136-145 mmol/L Potassium Level 3.7 3.5-5.1 mmol/L Chloride Level 108 98-107 mmol/L Carbon Dioxide Level 26 21-32 mmol/L Anion Gap 5.0 3-11 mmol/L Blood Urea Nitrogen 19 7-18 mg/dl Creatinine 0.72 0.60-1.20 mg/dl Est Creatinine Clear Calc Drug Dose 49.4 ml/min Estimated GFR () 91.7 Estimated GFR (Non- 79.1 BUN/Creatinine Ratio 26.7 10-20 Random Glucose 109 70-99 mg/dl Calcium Level 8.3 8.5-10.1 mg/dl Magnesium Level 1.8 1.8-2.4 mg/dl
--- NOTE | 2018-01-20 14:02 | Discharge Instructions ---
Discharge Instructions Date of Service Jan 20, 2018. Admission Reason for Admission: Atypical Chest Pain Discharge Discharge Diagnosis / Problem: Atypical Chest pain,Negative DSE Discharge Goals Goal(s): Prevent Disease Progression Activity Recommendations Activity Limitations: resume your previous activity . Instructions / Follow-Up Instructions / Follow-Up Dr Renteria ([place] is away) on 11/23/17 at 12:45 PM Current Hospital Diet Patient's current hospital diet: AHA Diet (Heart Healthy) Discharge Diet Recommended Diet: AHA Diet (Heart Healthy) Pending Studies Studies pending at discharge: no Medical Emergencies . Who to Call and When: Medical Emergencies: If at any time you feel your situation is an emergency, please call 911 immediately. . Non-Emergent Contact Non-Emergency issues call your: Primary Care Provider . Past History Medical & Surgical History: (1) Dyslipidemia (2) takutsubo cadiomyopathy (3) Hyperlipidemia (4) Hypothyroidism (5) Idiopathic osteoporosis (6) Chronic back pain (7) Atypical chest pain (8) Dizziness (9) Hypertension (10) History of cholecystectomy . "Provider Documentation" section prepared by Tip Urban. .
[2018-01-20 14:17] VITALS: BP 100/63; PULSE 54; TEMP 36.5; O2SAT 99
--- NOTE | 2018-01-21 08:00 | Discharge Summary ---
Discharge Summary Date of Service Jan 21, 2018. Discharge Summary Admission Date: Jan 19, 2018 at 11:28 Discharge Date: Jan 20, 2018 Discharge Disposition: Home Principal Diagnosis: Atypical Chest pain,Negative DSE Secondary Diagnoses/Problems: Please see H&P and Hospital Progress note Procedures: DSE Medication Reconciliation Continued Medications: Aspirin (Aspirin Ec) 81 Mg Tab 81 MG PO DAILY Calcium Carbonate-Vitamin D (Oscal 500/200 D-3) 1 Tab Tab 1 TAB PO DAILY Fish Oil ([place]-3) 1 Ea Cap 1 CAP PO QAM, 0 Refills Gabapentin (Neurontin) 100 Mg Cap 200 MG PO BID, 0 Refills Lactase (Lactaid) 3,000 Unit Tab 1 CAP PO WM PRN for LACTOSE INTOLERANCE Meclizine Hcl (Meclizine Hcl) 12.5 Mg Tab 12.5 MG PO Q6 PRN for Dizziness or Vertigo Omeprazole (Prilosec) 20 Mg Capcr 20 MG PO BID, 0 Refills Simvastatin (Zocor) 40 Mg Tab 40 MG PO HS, 0 Refills Tramadol (Ultram) 50 Mg Tab 50 MG PO Q6HR PRN, 0 Refills NEEDED FOR PAIN. Admission Information HPI (per Admitting provider): She is an 82-year-old female with a significant past medical history of hypertension, hyperlipidemia, osteoarthritis, vitamin B12 deficiency anemia and Carotid stenosis apparently has been complaining of chest pain that happened once last night. She was not doing anything physical but got the precordial pain which was sharp and lasted for a few seconds. Pain radiated to the back and did have some shortness of breath with it the pain is relieved by sublingual nitro 1. She went to see her primary care doctor today and with the symptoms and questionable EKG changes she was advised for admission. 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 No arrhythmias. * Arrhythmia induced during stress: occasional PVC's. * There is subtle hypokinesis of the inferior wall at the base at rest. All wall segments are hyperdynamic with stress including the inferior wall without stress-induced abnormality to suggest ischemia * The left ventricular ejection fraction increases normally with stress. The left ventricular end-systolic cavity size reduces post-stress (normal response). The left ventricular wall motion with stress is normal. * There is moderate concentric left ventricular hypertrophy. * Left ventricular systolic function is normal. * Ejection Fraction = 60-65%. * Aortic valve sclerosis mild, without significant aortic valvular stenosis. Hypertension Continue current medications Blood pressure seems to be stable Hyperlipidemia Continue with the statin Carotid artery disease No acute symptoms Continue aspirin Chronic back pain No acute radiculopathy Cannot walk on a treadmill so he get dobutamine stress echo tomorrow DVT prophylaxis with the subcu heparin We will discharge her home today No change in medications Follow up appointments made Total time spent on discharge = 35 minutes This includes examination of the patient, discharge planning, medication reconciliation, and communication with other providers. Discharge Instructions Date of Service Jan 20, 2018. Admission Reason for Admission: Atypical Chest Pain Discharge Discharge Diagnosis / Problem: Atypical Chest pain,Negative DSE Discharge Goals Goal(s): Prevent Disease Progression Activity Recommendations Activity Limitations: resume your previous activity . Instructions / Follow-Up Instructions / Follow-Up Dr Renteria ([facility] is away) on 11/23/17 at 12:45 PM Current Hospital Diet Patient's current hospital diet: AHA Diet (Heart Healthy) Discharge Diet Recommended Diet: AHA Diet (Heart Healthy) Pending Studies Studies pending at discharge: no Medical Emergencies . Who to Call and When: Medical Emergencies: If at any time you feel your situation is an emergency, please call 911 immediately. . Non-Emergent Contact Non-Emergency issues call your: Primary Care Provider . Past History Medical & Surgical History: (1) Dyslipidemia (2) takutsubo cadiomyopathy (3) Hyperlipidemia (4) Hypothyroidism (5) Idiopathic osteoporosis (6) Chronic back pain (7) Atypical chest pain (8) Dizziness (9) Hypertension (10) History of cholecystectomy Additional Copies To Seamus Del Angel D.O.
[2018-01-31] MEDS ORDERED: LISI-729 PO (10:52)
[2018-01-31] MEDS ORDERED: IBUP-1450 PO (10:52)
== END 2018-01-20 14:50 | disposition home or self-care (01) ==
LOC: C.EDB 09:04 → C.MED 11:28 → ENRESERV 11:41
PROVIDERS: ADMIT Internal Medicine; ATTEND Internal Medicine
DX: R07.89 Other chest pain (principal); R94.31 Abnormal electrocardiogram [ECG] [EKG]; I10 Essential (primary) hypertension; E78.5 Hyperlipidemia, unspecified; I25.10 Atherosclerotic heart disease of native coronary artery without angina pectoris; G89.29 Other chronic pain; Z79.82 Long term (current) use of aspirin; Z79.899 Other long term (current) drug therapy; M19.90 Unspecified osteoarthritis, unspecified site; E03.9 Hypothyroidism, unspecified; Z82.49 Family history of ischemic heart disease and other diseases of the circulatory system

== ENCOUNTER 2019-01-25 10:19 | Inpatient (IN) ==
[2019-01-25] MEDS ORDERED: SODIUM CHLORIDE 0.9% 1000ML 1,000 ML IV SCH (10:45)
--- NOTE | 2019-01-25 10:59 | XRay Report ---
XR chest 1V portable CLINICAL HISTORY: 83 years-old Female presenting with dizzy. TECHNIQUE: Portable upright AP view of the chest was obtained. COMPARISON: 10/14/2018. FINDINGS: Atherosclerosis of the aortic arch. Cardiac silhouette enlarged. No focal opacity. No large effusion or pneumothorax. Degenerative changes of the thoracic spine. Hyperdensities projecting over the epiga strium similar to prior. Cholecystectomy clips. IMPRESSION: 1. Cardiomegaly. No other convincing evidence of acute cardiopulmonary disease. Electronically signed by: Shailesh Brothers M.D. 01/25/2019 10:57 AM
[2019-01-25 11:23] LABS: Basophils # (auto) 0.02 K/uL (0-0.2); Basophils % (auto) 0.2 %; Eosinophils # (auto) 0.39 K/uL (0-0.5); Eosinophils % (auto) 3.1 %; Hematocrit (blood only) 36.9 % (37-47); Hemoglobin 11.8 g/dL (12.0-16.0); Immature Granulocytes # (auto) 0.05 K/uL (0.00-0.02); Immature Granulocytes % (auto) 0.4 %; Lymphocytes # (auto) 3.22 K/uL (1.2-3.4); Lymphocytes % (auto) 25.4 %; Mean Corpuscular Volume 82.2 fL (80-100); Mean Platelet Volume 9.5 fL (7.4-10.4); Monocytes # (auto) 0.88 K/uL (0.11-0.59); Monocytes % (auto) 6.9 %; Neutrophils # (auto) 8.13 K/uL (1.4-6.5); Platelet Count 227 K/uL (130-400); RDW Coefficient of Variation 14.3 % (11.5-14.5); RDW Standard Deviation 42.9 fL (36.4-46.3); Red Blood Count 4.49 M/uL (4.2-5.4); White Blood Count 12.69 K/uL (4.8-10.8)
[2019-01-25 11:33] LABS: INR 1.1 (0.9-1.1); Prothrombin Time 10.8 Seconds (9.0-12.0)
[2019-01-25 11:39] LABS: Albumin Level 3.3 gm/dl (3.4-5.0); BUN Creatinine Ratio 27.5 (10-20); Calcium 8.8 mg/dl (8.5-10.1); Creatinine Clr Calc Pharmacy 38.1 ml/min; Est GFR (African American) 69.5; Potassium 4.1 mmol/L (3.5-5.1)
[2019-01-25 11:46] LABS: Bilirubin,Total 0.4 mg/dl (0.2-1); Globulin 3.4 gm/dl (2.5-4.0); Total Protein 6.7 gm/dl (6.4-8.2); Troponin I 0.119 ng/ml (0-0.045)
--- NOTE | 2019-01-25 11:46 | CT Scan Report ---
CT head/brain wo con CLINICAL HISTORY: 83 years-old Female presenting with dizzy. TECHNIQUE: Multidetector CT imaging of the head was performed without the use of intravenous contrast . IV contrast: None. One or more dose lowering techniques were used consistent with the principles of ALARA (as low as reasonably achievable), including automatic exposure control, mA or kV adjustment t o individual patient size, and/or use of iterative reconstruction. COMPARISON: 02/16/2014. CT DOSE (mGy.cm): The estimated cumulative dose is 638.56. FINDINGS: Emergency Worker topogram: Unremarkable. Ventricles and sulci normal in size. No hemorrhage. Mild periventricular and subcortical white matter hypoattenuation, nonspecific but likely indicative of chronic small vessel ischemic change. No acute territorial infarct. No mass effect or midline shift. No extra-axial fluid collection. Paranasal sin uses and mastoid air cells clear. Calvarium intact. IMPRESSION: 1. Mild chronic small vessel ischemic change. No acute intracranial abnormality. Electronically signed by: Shailesh Brothers M.D. 01/25/2019 11:45 AM
[2019-01-25] MEDS ORDERED: ASPIRIN CHEW 324 MG PO STA (11:49)
[2019-01-25] MEDS ORDERED: Heparin IV Low Dose WITH Bolus IV STA (12:03)
[2019-01-25] MEDS ORDERED: HEPARIN SOD (PORCINE) 1000 UNIT/ML 10 ML VIAL ONE (12:16)
[2019-01-25] MEDS ORDERED: HEPARIN 25000 UNIT/500 ML D5W IV ONE (12:16)
[2019-01-25 12:23] LABS: Partial Thromboplastin Time 25.9 Seconds (21.0-31.0)
[2019-01-25] MEDS ORDERED: HEPARIN IV BOLUS 3,000 UNITS in SYRINGE 0 ML IV ONE (12:45)
--- NOTE | 2019-01-25 13:22 | History & Physical Report ---
Date of Service January 25, 2019 Assessment & Plan (1) Dizziness: (2) Acute electrocardiogram changes: 83 yo F presents today after one week of dizziness, weakness, fatigue No worsening of symptoms but was hoping to find out why she has been feeling so run down. Had EKG changes upon presentation to the ER She is asymptomatic at this time. Admission one year ago for chest pain: had normal stress echo at that time with EF 60-65%, no issues since then She denies chest pain, SOB, headaches, vision changes, cough, edema of legs, abdominal pain, dysuria, hematuria, decreased urinary output. 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 Guerrier) (3) B12 deficiency: Chronic-- Gets monthly injections (4) Osteoarthritis: (5) DDD (degenerative disc disease): Chronic-- Uses voltaren gel PRN and Tramadol PRN Continue Tramadol PRN throughout visit Tylenol PRN for mild-mod pain, as well (6) GERD (gastroesophageal reflux disease): Stable Continue omeprazole 20 mg BID (7) Hyperlipidemia: On Simvastatin 40 mg daily To continue Pt is a FULL CODE VTE Prophylaxis: Heparin Low Dose continued Pt follows with Dr. Del Angel for routine care. Patient seen in coordination with Dr. Urban. See addendum for further details. History of Present Illness Chief Complaint: Dizziness, fatigue Primary Care Provider: Seamus Del Angel, DO 83 yo F with PMHX: carotid stenosis, HLD, GERD, OA/DDD, Anemia, and B12 deficiency presents to [facility] ED for one week of dizziness, fatigue, weakness. Pt reports no worsening of symptoms today but called into her PCP as she wanted to figure out why she had been feeling this way and they advised her to go to the ED. Her daughter brought her into the ED today but during exam she is alone in the room. She has also noticed over the last week that she easily fatigues with her normal activities. She lives alone and takes care of her home by herself. Pt reports a normal appetite. She denies any recent illnesses. One year ago she was admitted to the hospital for chest pain-- had normal stress echo at that time with EF 60-65%. She has not had any major illnesses or issues since that admission. Pt denies dizziness at this time. She denies chest pain, SOB, headaches, vision changes, cough, edema of legs, abdominal pain, dysuria, hematuria, decreased urinary output. She received Heparin bolus and ASA 324 mg in the ED In the ED: BP 110/70, HR 58, O2 sat 96% RA WBC: 12.69, H/H 11.8/36.9, Cr 0.9, BUN 25, Troponin elevated to 0.119 CXR: no acute cardiopulm findings CT Head: no acute intracranial abnormalities EKG: rate 60 bpm, NSR with new T wave inversion of anterior leads Pt is a FULL CODE Allergies Allergy/AdvReac Type Severity Reaction Status Date / Time No Known Allergies Allergy Verified 01/25/19 11:06 Home Medications Home Medications Medication Instructions Recorded Confirmed Type aspirin 81 mg tablet,delayed 81 mg PO DAILY 03/21/18 01/25/19 History release calcium carbonate 500 mg (1,250 1 tab PO BID 03/21/18 01/25/19 History mg)-vitamin D3 200 unit tablet gabapentin 200 mg PO AMPM 10/15/18 01/25/19 History omeprazole 20 mg PO BID 10/15/18 01/25/19 History simvastatin 40 mg PO DAILY 10/15/18 01/25/19 History biotin 5 mg PO DIRECTED 01/25/19 01/25/19 History diclofenac sodium 2 g TOPICAL BID PRN 01/25/19 01/25/19 History lactase 3,000 unit PO AC PRN 01/25/19 01/25/19 History nitroglycerin 0.4 mg SUBLINGUAL UD 01/25/19 01/25/19 History tramadol 50 mg PO Q6 PRN 01/25/19 01/25/19 History Past Med/Surg History Medical History Chest pain (Acute) Hypertension (Acute) Low back pain (Acute) Lumbar disc lesion (Acute) Surgical History Hx of cholecystectomy (Inactive) Family History Other No pertinent family history Social History Feels Safe at Home: Yes Smoking Status: Never smoker Review of Systems Review of Systems: A total of 10 systems were reviewed and otherwise negative unless noted in the HPI or below Physical Exam Physical Exam: GENERAL: alert, healthy, no distress, well nourished and well developed, pleasant, resting comfortably in bed, conversing easily HEAD: Normocephalic, atraumatic EYES: PERRL, EOMI, Conjunctiva are pink and non-injected, sclera clear HEART: regular rate & rhythm, no murmurs and no gallops, no edema LUNGS: clear to auscultation bilaterally, no wheezing, rales or rhonchi ABDOMEN: abdomen soft, non-tender, normal bowel sounds x 4 quadrants, no masses or organomegaly, no rebound or guarding, no CVA tenderness, no bladder distention identified and no bruits MSK: moves all four extremities, no edema, normal strength and sensation throughout SKIN: skin color, texture, turgor are normal, no rashes or significant lesions NEURO: alert & oriented x 3 with fluent speech, no focal motor/sensory deficits Results & Data Vital Signs (Past 12 Hours) Vital Signs Temp Pulse Pulse Resp BP BP Pulse Ox 01/25/19 11:54 58 L 14 110/70 96 01/25/19 11:31 54 L 18 95 01/25/19 10:22 36.9 C 68 18 143/69 H 97 Laboratory Results Short CBC 01/25/19 01/25/19 01/25/19 Range/Units 11:14 11:14 11:14 WBC 12.69 H (4.8-10.8) K/uL RBC 4.49 (4.2-5.4) M/uL Hgb 11.8 L (12.0-16.0) g/dL Hct 36.9 L (37-47) % MCV 82.2 (80-100) fL MCH 26.3 (25-34) pg MCHC 32.0 (32-36) g/dL RDW Std Deviation 42.9 (36.4-46.3) fL RDW Coeff of Erik 14.3 (11.5-14.5) % Plt Count 227 (130-400) K/uL MPV 9.5 (7.4-10.4) fL Immature Gran % (Auto) 0.4 % Neut % (Auto) 64.0 % Lymph % (Auto) 25.4 % [place] % (Auto) 6.9 % Eos % (Auto) 3.1 % Baso % (Auto) 0.2 % Immature Gran # (Auto) 0.05 H (0.00-0.02) K/uL Neut # (Auto) 8.13 H (1.4-6.5) K/uL Lymph # (Auto) 3.22 (1.2-3.4) K/uL [place] # (Auto) 0.88 H (0.11-0.59) K/uL Eos # (Auto) 0.39 (0-0.5) K/uL Baso # (Auto) 0.02 (0-0.2) K/uL PT 10.8 (9.0-12.0) Seconds INR 1.1 (0.9-1.1) APTT (21.0-31.0) Seconds PTT Ratio Sodium 140 (136-145) mmol/L Potassium 4.1 (3.5-5.1) mmol/L Chloride 108 H (98-107) mmol/L Carbon Dioxide 27 (21-32) mmol/L Anion Gap 5.0 (3-11) BUN 25 H (7-18) mg/dl Creatinine 0.90 (0.6-1.2) mg/dl Est Cr Clr Drug Dosing 38.1 ml/min Est GFR ( Amer) 69.5 Est GFR (Non-Af Amer) 60.0 BUN/Creatinine Ratio 27.5 H (10-20) Glucose 104 H (70-99) mg/dl Calcium 8.8 (8.5-10.1) mg/dl Total Bilirubin 0.4 (0.2-1) mg/dl AST 9 L (15-37) U/L ALT 16 (12-78) U/L Alkaline Phosphatase 66 (45-117) U/L Troponin I 0.119 H* (0-0.045) ng/ml Total Protein 6.7 (6.4-8.2) gm/dl Albumin 3.3 L (3.4-5.0) gm/dl Globulin 3.4 (2.5-4.0) gm/dl Albumin/Globulin Ratio 1.0 (0.9-2) // Range/Units 11:14 WBC (4.8-10.8) K/uL RBC (4.2-5.4) M/uL Hgb (12.0-16.0) g/dL Hct (37-47) % MCV (80-100) fL MCH (25-34) pg MCHC (32-36) g/dL RDW Std Deviation (36.4-46.3) fL RDW Coeff of Erik (11.5-14.5) % Plt Count (130-400) K/uL MPV (7.4-10.4) fL Immature Gran % (Auto) % Neut % (Auto) % Lymph % (Auto) % [place] % (Auto) % Eos % (Auto) % Baso % (Auto) % Immature Gran # (Auto) (0.00-0.02) K/uL Neut # (Auto) (1.4-6.5) K/uL Lymph # (Auto) (1.2-3.4) K/uL [place] # (Auto) (0.11-0.59) K/uL Eos # (Auto) (0-0.5) K/uL Baso # (Auto) (0-0.2) K/uL PT (9.0-12.0) Seconds INR (0.9-1.1) APTT 25.9 (21.0-31.0) Seconds PTT Ratio 1.0 Sodium (136-145) mmol/L Potassium (3.5-5.1) mmol/L Chloride (98-107) mmol/L Carbon Dioxide (21-32) mmol/L Anion Gap (3-11) BUN (7-18) mg/dl Creatinine (0.6-1.2) mg/dl Est Cr Clr Drug Dosing ml/min Est GFR ( Amer) Est GFR (Non-Af Amer) BUN/Creatinine Ratio (10-20) Glucose (70-99) mg/dl Calcium (8.5-10.1) mg/dl Total Bilirubin (0.2-1) mg/dl AST (15-37) U/L ALT (12-78) U/L Alkaline Phosphatase (45-117) U/L Troponin I (0-0.045) ng/ml Total Protein (6.4-8.2) gm/dl Albumin (3.4-5.0) gm/dl Globulin (2.5-4.0) gm/dl Albumin/Globulin Ratio (0.9-2) BMP 01/25/19 11:14 Sodium 140 Potassium 4.1 Chloride 108 H Carbon Dioxide 27 BUN 25 H Creatinine 0.90 Glucose 104 H Calcium 8.8 Cardiac Enzymes 01/25/19 Range/Units 11:14 Troponin I 0.119 H* (0-0.045) ng/ml Liver Function 01/25/19 Range/Units 11:14 Total Bilirubin 0.4 (0.2-1) mg/dl AST 9 L (15-37) U/L ALT 16 (12-78) U/L Alkaline Phosphatase 66 (45-117) U/L Albumin 3.3 L (3.4-5.0) gm/dl Diagnostic Findings CXR: no acute cardiopulmonary findings CT Head: no acute intracranial abnormalities ECG Rate (beats per minute): 60 Additional Comments: NSR with new T wave inversion of anterior leads Supervising Physician Co-Signing Physician Notes Attending addendum The patient was seen and examined by me in the emergency room 83 yo F with PMHX: carotid stenosis, HLD, GERD, OA/DDD, Anemia, and B12 deficiency presents to [facility] ED for one week of dizziness, fatigue, weakness. She has been complaining of dizziness especially when she is ambulant Denies any palpitation and/or chest pain. 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
--- NOTE | 2019-01-25 14:56 | Emergency Department Note ---
Entered by Kate Cormier acting as a scribe for Frankie Barton DO History of Present Illness General Chief complaint: Dizziness Stated complaint: LIGHTHEADED Source: patient History of Present Illness Onset (ago): week(s) 1 Location: head Pain Consistency: + intermittent Quality: + other (dizziness) Relieved By: + rest Exacerbated By: + movement (of head) Associated symptoms: + other (positive leg heaviness; negative ringing in ears; negative runny nose; negative urinary symptoms); no chest pain, no cough, no headaches, no nausea/vomiting and no syncope The patient is a 83 year old female with a PMHX of hypertension who presents to the Emergency Room with complaints of intermittent dizziness that began about one week prior to arrival. The patient describes this as "walking on a cloud" and states that she feels lightheaded. She states that her symptoms are exacerbated by movement of her head and relieved by rest. The patient states that during these episodes she feels as though her legs are heavy. She denies headache, ringing in ears, syncope, cough, runny nose, chest pain, nausea, vomiting, and urinary symptoms. The patient reports that yesterday she had some now resolved pain in her left cheek along her jaw. The patient denies being on b lood thinners. No other exacerbating or remitting factors. Home Medications Home Medications Medication Instructions Recorded Confirmed Type aspirin 81 mg tablet,delayed 81 mg PO DAILY 03/21/18 01/25/19 History release calcium carbonate 500 mg (1,250 1 tab PO BID 03/21/18 01/25/19 History mg)-vitamin D3 200 unit tablet gabapentin 200 mg PO AMPM 10/15/18 01/25/19 History omeprazole 20 mg PO BID 10/15/18 01/25/19 History simvastatin 40 mg PO DAILY 10/15/18 01/25/19 History biotin 5 mg PO DIRECTED 01/25/19 01/25/19 History diclofenac sodium 2 g TOPICAL BID PRN 01/25/19 01/25/19 History lactase 3,000 unit PO AC PRN 01/25/19 01/25/19 History nitroglycerin 0.4 mg SUBLINGUAL UD 01/25/19 01/25/19 History tramadol 50 mg PO Q6 PRN 01/25/19 01/25/19 History Allergies Allergy/AdvReac Type Severity Reaction Status Date / Time No Known Allergies Allergy Verified 01/25/19 11:06 Past Med/Surg History Medical History Chest pain (Acute) Hypertension (Acute) Low back pain (Acute) Lumbar disc lesion (Acute) Surgical History Hx of cholecystectomy (Inactive) Family History Other No pertinent family history Social History Feels Safe at Home: Yes Smoking Status: Never smoker Review of Systems See HPI for pertinent positives & negatives. and A total of 10 systems reviewed and were otherwise negative Physical Exam Vital Signs Vital Signs - 24 hr 01/25/19 10:22 01/25/19 11:31 01/25/19 11:54 Temperature 36.9 C Temperature Source Oral Sepsis Recent Fever Within 48 Hours No Sepsis Action Taken by Nursing No Action Required Pulse Rate 68 54 L Pulse Rate [Left] 58 L Respiratory Rate 18 18 14 Respiratory Effort / Characteristics Non-Labored Spontaneous Respiratory Depth Normal Blood Pressure 143/69 H Blood Pressure [Right Arm] 110/70 Blood Pressure Mean 93 Blood Pressure Mean [Right Arm] 83 Blood Pressure Position [Right Arm] Lying Pulse Oximetry 97 95 96 Oxygen Delivery Method Room Air Room Air Room Air 01/25/19 13:00 Temperature Temperature Source Sepsis Recent Fever Within 48 Hours Sepsis Action Taken by Nursing Pulse Rate Pulse Rate [Left] 62 Respiratory Rate 16 Respiratory Effort / Characteristics Respiratory Depth Blood Pressure Blood Pressure [Right Arm] 149/70 H Blood Pressure Mean Blood Pressure Mean [Right Arm] 96 Blood Pressure Position [Right Arm] Pulse Oximetry 98 Oxygen Delivery Method Room Air GENERAL: Sitting up in bed. Well appearing for stated age. Nontoxic. EYE EXAM: normal conjunctiva PERRL and EOM's intact EARS: TMs clear bilaterally. OROPHARYNX: no exudate, no erythema, lips, buccal mucosa, and tongue normal and mucous membranes are moist NECK: supple, no nuchal rigidity, no adenopathy, non-tender LUNGS: Clear to auscultation. Normal chest wall mechanics HEART: no murmurs, S1 normal and S2 normal ABDOMEN: abdomen soft, non-tender, normo-active bowel sounds, no masses, no rebound or guarding. BACK: Back is symmetrical on inspection and there is no deformity, no midline tenderness, no CVA tenderness. SKIN: no rashes and no bruising UPPER EXTREMITIES: upper extremities are grossly normal. LOWER EXTREMITIES: No pitting edema. NEURO EXAM: Normal sensorium, cranial nerves II-XII intact, normal speech, no weakness of arms, no weakness of legs. No drift. Finger to nose intact. Gross sensation intact. Course ED COURSE: Vital signs were reviewed and showed to be normal. The patients medical record was reviewed The above diagnostic studies were performed and reviewed. ED treatments and interventions as stated above. 1032: The patient was evaluated in room A4B. A complete history and physical examination was performed. 1221: Upon reevaluation, the patient is resting comfortably. I discussed my findings with the patient and understands and agrees with the treatment plan. 1225: I discussed the case with Dr. [facility] who recommends treating the patient as an NSTEMI and starting her on a heparin drip and bolus. 1227: I checked on the patient. She denies any bleeding risk factors. I verbally consented her for Heparin. 1230: I discussed the case with Elsa Based on the patients age, coexisting illnesses, exam and lab findings the decision to treat as an inpatient was made. The patient remained stable while under my care. The patient will be evaluated for further management. Administered Medications Discontinued Medications Aspirin (Aspirin) 324 mg PO NOW STA Stop: 01/25/19 11:50 Last Admin: 01/25/19 11:56 Dose: 324 mg Documented by: [id number] Heparin Sodium (Porcine) (Heparin Iv Bolus) Confirm Administered Dose 10,000 units .ROUTE .STK-MED ONE Stop: 01/25/19 12:17 Last Admin: 01/25/19 12:23 Dose: 3,000 units Documented by: [id number] Cosigned by: [id number] Heparin Sodium/Dextrose () 1 ea IV NOW STA; Protocol Stop: 01/25/19 12:04 Last Admin: 01/25/19 12:29 Dose: Not Given Documented by: [id number] Heparin Sodium/Dextrose (Heparin Sodium/Dextrose) Confirm Administered Dose 25,000 units IV .STK-MED ONE Stop: 01/25/19 12:17 Last Admin: 01/25/19 12:23 Dose: 600 units Documented by: [id number] Cosigned by: [id number] Sodium Chloride (Nss 1000ml) 1,000 mls @ 999 mls/hr IV .Q1H1M ROSELIA Stop: 01/25/19 11:45 Last Infusion: 01/25/19 12:27 Dose: 0 mls/hr Documented by: [id number] Admin: 01/25/19 11:20 Dose: 999 mls/hr Documented by: [id number] Medical Decision Making Differential Diagnosis Differential diagnosis includes etiologies such as benign positional vertigo, dehydration, hypovolemia, anemia, tumor, infection, hypoglycemia, electrolyte abnormalities, cardiac sources, intracerebral event, toxicologic, neurologic, as well as others were entertained. Medical Records Attestation: I reviewed the patient's medical records. Home Medications Current Medication List: was personally reviewed by me Laboratory Data Attestation: I reviewed the patient's lab results. Result diagrams: 01/25/19 11:14 01/25/19 11:14 Lab Results 01/25/19 01/25/19 01/25/19 Range/Units 11:14 11:14 11:14 WBC 12.69 H (4.8-10.8) K/uL RBC 4.49 (4.2-5.4) M/uL Hgb 11.8 L (12.0-16.0) g/dL Hct 36.9 L (37-47) % MCV 82.2 (80-100) fL MCH 26.3 (25-34) pg MCHC 32.0 (32-36) g/dL RDW Std Deviation 42.9 (36.4-46.3) fL RDW Coeff of Erik 14.3 (11.5-14.5) % Plt Count 227 (130-400) K/uL MPV 9.5 (7.4-10.4) fL Immature Gran % (Auto) 0.4 % Neut % (Auto) 64.0 % Lymph % (Auto) 25.4 % [place] % (Auto) 6.9 % Eos % (Auto) 3.1 % Baso % (Auto) 0.2 % Immature Gran # (Auto) 0.05 H (0.00-0.02) K/uL Neut # (Auto) 8.13 H (1.4-6.5) K/uL Lymph # (Auto) 3.22 (1.2-3.4) K/uL [place] # (Auto) 0.88 H (0.11-0.59) K/uL Eos # (Auto) 0.39 (0-0.5) K/uL Baso # (Auto) 0.02 (0-0.2) K/uL PT 10.8 (9.0-12.0) Seconds INR 1.1 (0.9-1.1) APTT (21.0-31.0) Seconds PTT Ratio Sodium 140 (136-145) mmol/L Potassium 4.1 (3.5-5.1) mmol/L Chloride 108 H (98-107) mmol/L Carbon Dioxide 27 (21-32) mmol/L Anion Gap 5.0 (3-11) BUN 25 H (7-18) mg/dl Creatinine 0.90 (0.6-1.2) mg/dl Est Cr Clr Drug Dosing 38.1 ml/min Est GFR ( Amer) 69.5 Est GFR (Non-Af Amer) 60.0 BUN/Creatinine Ratio 27.5 H (10-20) Glucose 104 H (70-99) mg/dl Calcium 8.8 (8.5-10.1) mg/dl Total Bilirubin 0.4 (0.2-1) mg/dl AST 9 L (15-37) U/L ALT 16 (12-78) U/L Alkaline Phosphatase 66 (45-117) U/L Troponin I 0.119 H* (0-0.045) ng/ml Total Protein 6.7 (6.4-8.2) gm/dl Albumin 3.3 L (3.4-5.0) gm/dl Globulin 3.4 (2.5-4.0) gm/dl Albumin/Globulin Ratio 1.0 (0.9-2) /18/19 Range/Units 11:14 WBC (4.8-10.8) K/uL RBC (4.2-5.4) M/uL Hgb (12.0-16.0) g/dL Hct (37-47) % MCV (80-100) fL MCH (25-34) pg MCHC (32-36) g/dL RDW Std Deviation (36.4-46.3) fL RDW Coeff of Erik (11.5-14.5) % Plt Count (130-400) K/uL MPV (7.4-10.4) fL Immature Gran % (Auto) % Neut % (Auto) % Lymph % (Auto) % [place] % (Auto) % Eos % (Auto) % Baso % (Auto) % Immature Gran # (Auto) (0.00-0.02) K/uL Neut # (Auto) (1.4-6.5) K/uL Lymph # (Auto) (1.2-3.4) K/uL [place] # (Auto) (0.11-0.59) K/uL Eos # (Auto) (0-0.5) K/uL Baso # (Auto) (0-0.2) K/uL PT (9.0-12.0) Seconds INR (0.9-1.1) APTT 25.9 (21.0-31.0) Seconds PTT Ratio 1.0 Sodium (136-145) mmol/L Potassium (3.5-5.1) mmol/L Chloride (98-107) mmol/L Carbon Dioxide (21-32) mmol/L Anion Gap (3-11) BUN (7-18) mg/dl Creatinine (0.6-1.2) mg/dl Est Cr Clr Drug Dosing ml/min Est GFR ( Amer) Est GFR (Non-Af Amer) BUN/Creatinine Ratio (10-20) Glucose (70-99) mg/dl Calcium (8.5-10.1) mg/dl Total Bilirubin (0.2-1) mg/dl AST (15-37) U/L ALT (12-78) U/L Alkaline Phosphatase (45-117) U/L Troponin I (0-0.045) ng/ml Total Protein (6.4-8.2) gm/dl Albumin (3.4-5.0) gm/dl Globulin (2.5-4.0) gm/dl Albumin/Globulin Ratio (0.9-2) Imaging Data Radiologist's Impression: Radiology results as stated below per my review and the radiologist's interpretation: CT head/brain wo con CLINICAL HISTORY: 83 years-old Female presenting with dizzy. TECHNIQUE: Multidetector CT imaging of the head was performed without the use of intravenous contrast. IV contrast: None. One or more dose lowering techniques were used consistent with the principles of ALARA (as low as reasonably achievable), including automatic exposure control, mA or kV adjustment to individual patient size, and/or use of iterative reconstruction. COMPARISON: 02/16/2014. CT DOSE (mGy.cm): The estimated cumulative dose is 638.56. FINDINGS: Supervisor Model Making topogram: Unremarkable. Ventricles and sulci normal in size. No hemorrhage. Mild periventricular and subcortical white matter hypoattenuation, nonspecific but likely indicative of chronic small vessel ischemic change. No acute territorial infarct. No mass effect or midline shift. No extra-axial fluid collection. Paranasal sinuses and mastoid air cells clear. Calvarium intact. IMPRESSION: 1. Mild chronic small vessel ischemic change. No acute intracranial abnormality. Electronically signed by: Shailesh Brothers M.D. 01/25/2019 11:45 AM XR chest 1V portable CLINICAL HISTORY: 83 years-old Female presenting with dizzy. TECHNIQUE: Portable upright AP view of the chest was obtained. COMPARISON: 10/14/2018. FINDINGS: Atherosclerosis of the aortic arch. Cardiac silhouette enlarged. No focal opacity. No large effusion or pneumothorax. Degenerative changes of the thoracic spine. Hyperdensities projecting over the epigastrium similar to prior. Cholecystectomy clips. IMPRESSION: 1. Cardiomegaly. No other convincing evidence of acute cardiopulmonary disease. Electronically signed by: Shailesh Brothers M.D. 01/25/2019 10:57 AM ECG Data Attestation: I personally reviewed and interpreted this ECG as follows: Indication: weakness Rate (beats per minute): 60 Rhythm: sinus rhythm Findings: + other (normal axis), + ST depression (lateral) and + T-wave inversion (high lateral; septal; anteiror; lateral) Comparison ECG Date: from (10/14/18) Change: the following changes noted (TWI new in the septal and lateral ) Blood Pressure Blood Pressure Findings: Elevated blood pressure Blood Pressure Disposition: further management by hospitalist ZAC Narrative Patient is an 83-year-old female with a past medical history of hyperlipidemia, GERD, carotid stenosis, who presents the ER for dizziness with movement of her head and when she is up and around. She notes that she does feel slightly lightheaded. Patient currently has no chest pain or shortness of breath. She notes some shortness of breath with exertion. Yesterday she did have some jaw pain. Labs showed mild leukocytosis 12.6 thousand. No significant anemia. INR is unremarkable. BMP was unremarkable as well. Troponin was detectable at 0.119. Chest x-ray and CT head were negative. Patient had no bleeding risk factors. Denies any recent trauma, surgeries, brain bleeds, coughing up blood, vomiting blood or urinating blood. Risk and benefits of heparin were discussed. Patient was given IV heparin bolus and drip. Discussed with the hospitalist as well as cardiology and patient was brought in for an NSTEMI with an EKG that showed new T wave inversions and ST depressions.. Impression & Plan Non-ST elevation IA (NSTEMI), Hypertension, Jaw pain, Acute electrocardiogram changes Critical Care Time Critical Care Time: Yes Total Critical Care Time: 35 I have personally spent 35 minutes of critical care time in the direct management of this patient. This includes bedside care, interpretation of diagnostic studies, and testing, discussion with consultants, patient, and family members, and other required patient management activities. This 35 minutes is in excess of all separately billable procedures. Discharge Plan Visit Data Chief Complaint: Dizziness Stated Complaint: LIGHTHEADED ED Provider: Frankie Barton Discharge Problem: Non-ST elevation IA (NSTEMI), Hypertension, Jaw pain, Acute electrocardiogram changes Patient Disposition: Being Evaluated by Hospitalist Discharge Instructions Interventions: ED Discharge Assessment Last Done: 01/25/19 14:23 Forms Stand Alone Forms: My [facility] Prescriptions Prescriptions: No Action aspirin 81 mg tablet,delayed release (DR/EC) 81 mg PO DAILY RF: 0 calcium carbonate-vitamin D3 500 mg(1,250mg) -200 unit tablet 1 tab PO BID RF: 0 omeprazole 20 mg capsule,delayed release(DR/EC) 20 mg PO BID RF: 0 gabapentin 100 mg capsule 200 mg PO AMPM RF: 0 simvastatin 40 mg tablet 40 mg PO DAILY RF: 0 nitroglycerin 0.4 mg tablet, sublingual 0.4 mg sublingual UD RF: 0 biotin 5 mg Capsule 5 mg PO DIRECTED RF: 0 tramadol 50 mg tablet 50 mg PO Q6 PRN (Reason: Pain) RF: 0 lactase 3,000 unit Tablet 3,000 unit PO AC PRN (Reason: gi upset) RF: 0 diclofenac sodium 1 % gel 2 g topical BID PRN (Reason: Pain) RF: 0 Referrals Referrals: Seamus Del Angel, [Primary Care Provider] - The scribe's documentation has been prepared under my direction and personally reviewed by me in its entirety. I confirm that the note above accurately reflects all work, treatment, procedures, and medical decision making performed by me.
[2019-01-25] MEDS ORDERED: ACETAMINOPHEN 325 MG TAB PO PRN (15:02)
[2019-01-25] MEDS ORDERED: NITROGLYCERIN SL 0.4 MG/TAB TAB SL PRN (15:02)
[2019-01-25] MEDS ORDERED: TRAMADOL HCL 50 MG TABLET PO PRN (15:02)
[2019-01-25] MEDS: HEPARIN SODIUM/DEXTROSE 25,000 UNITS/500 ML BAG IV SCH ×2 (15:08→19:25)
--- NOTE | 2019-01-25 16:57 | Cardiology Consultation ---
Date of Consultation January 25, 2019 Assessment & Plan (1) Non-ST elevation MD (NSTEMI): Patient is currently symptom free. I would speculate that her jaw discomfort noted yesterday was an anginal equivalent. She does have significant EKG changes. I think the differential diagnosis of her EKG changes includes non-ST segment elevation myocardial infarction versus cerebrovascular event. The patient's initial CT was within normal limits, and given the mild elevation in her troponin and lack of ongoing neurologic symptoms, I think it is most prudent to treat her as if she is having a non-ST segment elevation acute coronary syndrome at present. Continue aspirin 81 mg daily. The heart rate on her most recent EKG was 55 bpm, and therefore I have not started a beta-zarina. Will start topical nitroglycerin and amlodipine for HTN. IV heparin infusion was started in the ED and this is to be continued. Plan on TTE first thing in am. -Advance diet now, NPO after MN for anticipated cardiac catheterization 01/26/19. -No indication for emergent cardiac cath at present. -CAD work-up is unrevealing, consider MRI of the brain. (2) Carotid stenosis: She has history of known moderate carotid disease with 50 to 69% right internal carotid artery stenosis and 50 to 69% left internal carotid artery stenosis by outpatient duplex performed in May 2017. -Continue antiplatelet therapy, statin therapy, blood pressure control. (3) Hypertension: Start low-dose amlodipine, topical nitrates. (4) Hyperlipidemia: Patient had been on simvastatin 20 mg daily. The admitting team had increased to 40 mg daily however given decision to proceed with treatment with amlodipine, will avoid simvastatin as the 2 medications interact and we will therefore transition her to atorvastatin which is a safer alternative when administered with amlodipine. DVT prophylaxis: Patient is on unfractionated heparin infusion. History of Present Illness Attending Physician: Yaya Varner MD History of Present Illness Debbie Jesus is an 83 year old female seen in cardiology consultation per the request [facility] Franklin Shabazz [facility] the evaluation of abnormal EKG and mild elevation in troponin. The patient has a history of hypertension and dyslipidemia. She has had several past noninvasive evaluations for chest pain including nonischemic response to dobutamine stress echocardiogram performed on 01/23/2018. The patient presented to the emergency department today after speaking to her primary care provider's office. She has been having on and off again dizziness x1 week along with tiredness. On further discussion she also notes a transient left jaw pain that occurred at rest yesterday. EKG performed in the emergency department today 01/25/2019 at 11:01 AM and reviewed independently revealed normal sinus rhythm at 60 bpm with age- indeterminate septal infarction pattern, and T wave inversions noted in leads V2 to V6 as well as I and aVL. Her tracing performed 10/14/2018, the T wave inversion is now evident in the anterior and lateral leads having replaced mild nonspecific T wave changes. The patient was assessed at the bedside by the undersigned it just after 1600 today. A stat EKG performed per my request revealed sinus bradycardia at 55 bpm with ongoing T wave inversions in the anterior precordial leads extending from V1 to V6, they were more prominent in the anteroseptal leads V2 and V3 compared to the prior EKG, and ongoing T wave inversions in leads I and aVL. During my assessment the patient denied any cardiac complaint. She denies any chest discomfort or shortness of breath. She denied any ongoing jaw discomfort. Her previous complaint of dizziness was no longer present however she stated that she had difficulty commenting about the dizziness because she was in bed. She was comfortable, and was reading on her mobile phone when I arrived at the time of my assessment. Telemetry revealed a brief run of supraventricular tachycardia, less than 10 beats in duration. Her initial troponin performed at 1114 this morning was mildly elevated 0.119 NG per mL. The next measurement is due to be drawn in a few minutes. Allergies Allergy/AdvReac Type Severity Reaction Status Date / Time No Known Allergies Allergy Verified 01/25/19 11:06 Home Medications Home Medications Medication Instructions Recorded Confirmed Type aspirin 81 mg tablet,delayed 81 mg PO DAILY 03/21/18 01/25/19 History release calcium carbonate 500 mg (1,250 1 tab PO BID 03/21/18 01/25/19 History mg)-vitamin D3 200 unit tablet gabapentin 200 mg PO AMPM 10/15/18 01/25/19 History omeprazole 20 mg PO BID 10/15/18 01/25/19 History simvastatin 40 mg PO DAILY 10/15/18 01/25/19 History biotin 5 mg PO DIRECTED 01/25/19 01/25/19 History diclofenac sodium 2 g TOPICAL BID PRN 01/25/19 01/25/19 History lactase 3,000 unit PO AC PRN 01/25/19 01/25/19 History nitroglycerin 0.4 mg SUBLINGUAL UD 01/25/19 01/25/19 History tramadol 50 mg PO Q6 PRN 01/25/19 01/25/19 History Patient History Medical History Chest pain (Acute) Hypertension (Acute) Low back pain (Acute) Lumbar disc lesion (Acute) Surgical History Hx of cholecystectomy (Inactive) Family History Other No pertinent family history Social History 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 Beliefs That Will Affect Care: Scientology Scientology Beliefs: Catholicism Current Living Situation: Family Current Living Situation Comment: Lives with grandson-Ladarius Other Information That Helps Us Care for You: No Feels Safe at Home: Yes Safety Concerns: Feels Safe At This Time Smoking Status: Never smoker Do You Dip or Chew Tobacco: No Second Hand Exposure: No Tobacco Cessation Education Requested by Patient: No Hx Alcohol Use: No Hx Substance Use: No Review of Systems Review of Systems: All systems reviewed & are unremarkable except as noted in HPI & below Physical Exam Physical Exam: Temp Pulse Resp BP Pulse Ox 36.5 C 61 18 167/69 H 98 01/25/19 15:05 01/25/19 15:05 01/25/19 15:05 01/25/19 15:05 01/25/19 15:05 Constitutional: WD/WN, vitals as above Respiratory: normal respiratory effort, lungs clear to auscultation Cardiovascular: RRR, no murmur, no edema Gastrointestinal (Abdomen): normal bowel sounds, soft, nontender, no hepatosplenomegaly Skin: no rashes, warm and dry Neurologic: PERRL, EOMI, accommodation nl, no face palsy, no dysarthria moves all extremities; no focal motor deficits Results & Data Vital Signs (Past 12 Hours) Vital Signs Temp Pulse Pulse Resp BP BP Pulse Ox 01/25/19 15:05 36.5 C 61 18 167/69 H 98 01/25/19 13:00 62 16 149/70 H 98 01/25/19 11:54 58 L 14 110/70 96 01/25/19 11:31 54 L 18 95 01/25/19 10:22 36.9 C 68 18 143/69 H 97 Laboratory Results Cardiac Enzymes 01/25/19 Range/Units 11:14 AST 9 L (15-37) U/L Troponin I 0.119 H* (0-0.045) ng/ml Coagulation 01/25/19 01/25/19 Range/Units 11:14 11:14 PT 10.8 (9.0-12.0) Seconds APTT 25.9 (21.0-31.0) Seconds CBC 01/25/19 Range/Units 11:14 WBC 12.69 H (4.8-10.8) K/uL RBC 4.49 (4.2-5.4) M/uL Hgb 11.8 L (12.0-16.0) g/dL Hct 36.9 L (37-47) % Plt Count 227 (130-400) K/uL Neut # (Auto) 8.13 H (1.4-6.5) K/uL Lymph # (Auto) 3.22 (1.2-3.4) K/uL [place] # (Auto) 0.88 H (0.11-0.59) K/uL Eos # (Auto) 0.39 (0-0.5) K/uL Baso # (Auto) 0.02 (0-0.2) K/uL Comprehensive Metabolic Panel 01/25/19 Range/Units 11:14 Sodium 140 (136-145) mmol/L Potassium 4.1 (3.5-5.1) mmol/L Chloride 108 H (98-107) mmol/L Carbon Dioxide 27 (21-32) mmol/L BUN 25 H (7-18) mg/dl Creatinine 0.90 (0.6-1.2) mg/dl Glucose 104 H (70-99) mg/dl Calcium 8.8 (8.5-10.1) mg/dl AST 9 L (15-37) U/L ALT 16 (12-78) U/L Alkaline Phosphatase 66 (45-117) U/L Total Protein 6.7 (6.4-8.2) gm/dl Albumin 3.3 L (3.4-5.0) gm/dl Intake and Output 01/25/19 01/25/19 01/25/19 06:59 14:59 22:59 Intake Total 1000 / 1000 Balance 1000 / 1000 Intake: IV 1000 / 1000 Nss 1000ML 1,000 ml @ 999 mls/ 1000 / 1000 hr IV .Q1H1M [facility] Rx#:[id number] Other: Weight 58.2 kg 57.8 kg Patient Weight 01/26/19 06:59 Weight 57.8 kg Diagnostic Findings EKG tracings as outlined in the HPI Medications Administered Current Inpatient Medications Acetaminophen (Tylenol) 650 mg PO Q4H PRN PRN Reason: Pain or Fever Stop: 02/24/19 15:01 Aspirin (Ecotrin Ectab) 81 mg PO DAILY [facility] Stop: 02/25/19 08:59 Gabapentin (Neurontin) 200 mg PO [facility] Stop: 02/24/19 20:59 Heparin Sodium/Dextrose (Heparin Sodium/Dextrose) 25,000 units in 500 mls @ 12 mls/hr IV .Q24H [facility]; Protocol Stop: 02/24/19 12:44 Last Admin: 01/25/19 15:08 Dose: Not Given Documented by: Multivitamins/Minerals (Caltrate Plus) 1 tab PO BID [facility] Stop: 02/24/19 20:59 Nitroglycerin (Nitrostat) 0.4 mg SL UD PRN PRN Reason: Chest Pain Stop: 02/24/19 15:01 Nitroglycerin (Nitro-Bid 2%) 0.5 inch EXT Q6H [facility] Stop: 02/24/19 16:59 Pantoprazole Sodium (Protonix) 40 mg PO BID [facility]; Protocol Stop: 02/24/19 20:59 Simvastatin (Zocor) 40 mg PO HS [facility] Stop: 02/24/19 20:59 Tramadol HCl (Ultram) 50 mg PO Q6H PRN PRN Reason: Pain Stop: 02/24/19 15:01 (1) Hypertension Hypertension type: unspecified Qualified Code(s): I10 - Essential (primary) hypertension
[2019-01-25] MEDS: NITROGLYCERIN 2% OINTMENT 30GM TUBE EXT SCH ×2 (18:05→22:52)
[2019-01-25 18:46] LABS: Partial Thromboplastin Ratio 1.6
[2019-01-25] MEDS: AMLODIPINE BESYLATE 5 MG TAB PO SCH (18:58)
[2019-01-25] MEDS ORDERED: HEPARIN IV BOLUS 2,000 UNITS in SYRINGE 0 ML IV ONE (19:15)
[2019-01-25 19:16] LABS: Magnesium 2.1 mg/dl (1.8-2.4); Troponin I 0.078 ng/ml (0-0.045)
[2019-01-25] MEDS ORDERED: SIMVASTATIN 40 MG TAB PO SCH (21:00)
[2019-01-25] MEDS: CALCIUM 600MG + VIT D 400 IU TAB PO SCH (21:02)
[2019-01-25] MEDS: PANTOprazole 40 MG TAB PO SCH (21:02)
[2019-01-25] MEDS: ATORVASTATIN 20 MG TAB PO SCH (21:02)
[2019-01-25] MEDS: GABAPENTIN 100 MG CAP PO SCH (21:03)
[2019-01-26 01:52] LABS: Partial Thromboplastin Ratio 1.9
[2019-01-26] MEDS: NITROGLYCERIN 2% OINTMENT 30GM TUBE EXT SCH ×3 (05:11→18:17)
[2019-01-26 06:33] LABS: Hematocrit (blood only) 36.5 % (37-47); Hemoglobin 11.7 g/dL (12.0-16.0); Mean Corpuscular Hgb Conc 32.1 g/dL (32-36); Mean Corpuscular Volume 82.4 fL (80-100); Mean Platelet Volume 9.6 fL (7.4-10.4); Platelet Count 213 K/uL (130-400); RDW Coefficient of Variation 14.3 % (11.5-14.5); Red Blood Count 4.43 M/uL (4.2-5.4); White Blood Count 10.38 K/uL (4.8-10.8)
[2019-01-26 07:07] LABS: BUN Creatinine Ratio 22.2 (10-20); Creatinine Clr Calc Pharmacy 37.8 ml/min; Est GFR (African American) 69.5; Magnesium 2.1 mg/dl (1.8-2.4); Potassium 3.7 mmol/L (3.5-5.1)
[2019-01-26] MEDS: CALCIUM 600MG + VIT D 400 IU TAB PO SCH ×2 (07:57→20:50)
[2019-01-26] MEDS: PANTOprazole 40 MG TAB PO SCH ×2 (07:58→20:51)
[2019-01-26] MEDS: GABAPENTIN 100 MG CAP PO SCH ×2 (07:58→20:51)
[2019-01-26] MEDS: AMLODIPINE BESYLATE 5 MG TAB PO SCH (07:59)
[2019-01-26] MEDS ORDERED: ASPIRIN 81 MG ECTAB PO SCH (09:00)
--- NOTE | 2019-01-26 09:15 | Cardiology Progress Note ---
Date of Service January 26, 2019 Assessment & Plan (1) Non-ST elevation IN (NSTEMI): Mildly elevated troponins noted. ECG unremarkable suggesting underlying ischemic heart disease versus neurologic event. Recommend neurology consultation. Resting 2D transthoracic echocardiogram unchanged when compared to recent echo performed January 2018. Preserved LV systolic function noted. There is no significant valvular disease. The risks, benefits, alternatives to cardiac catheterization discussed the patient at length. Plans to proceed with cardiac catheterization pending MRI result. Patient agreeable. Subjective Patient seen and examined at the bedside. Reports feeling of generalized weakness and dizziness prior to admission. Reports difficulty walking. There was a transient episode of left-sided jaw discomfort approximately 2 days ago. Denies chest pain or unusual shortness of breath. No focal weakness, slurred speech, or paresthesias. Denies orthopnea, PND, lower extremity edema, or claudication. Review of Systems Review of Systems: All systems reviewed & are unremarkable except as noted in HPI & below Physical Exam Physical Exam: General: NAD, AAO x3, well nourished. HEENT: Normocephalic. Atraumatic. Conjunctiva pink, no scleral icterus. Neck: No carotid bruits, the carotid upstrokes are brisk. No JVD. No HJR Heart: Regular normal S-1 and S-2 no S-3 or S-4 gallop. No murmurs or rub appreciated. PMI is not displaced. No RV heave. Lungs: Clear bilateral without rales , rhonchi, or wheeze. Abdomen: Normal bowel sounds. Soft. Nontender. No masses or organomegaly. No abdominal bruits. Extremities: No clubbing, cyanosis, or edema. Pulses: radial=2/4, Dorsalis pedis =2/4, posterior tibial=2/4. Neuro: Cranial nerves grossly intact. Mild facial asymmetry. No focal motor deficit. Results & Data Vital Signs (Past 12 Hours) Vital Signs Temp Pulse Pulse Resp BP Pulse Ox 01/26/19 07:52 36.5 C 61 18 167/75 H 95 01/26/19 04:17 36.7 C 67 18 159/69 H 96 01/25/19 23:30 65 01/25/19 23:28 36.3 C L 64 20 149/68 H 96
--- NOTE | 2019-01-26 12:18 | Magnetic Resonance Report ---
MRI OF THE BRAIN WITHOUT CONTRAST CLINICAL HISTORY: Dizziness. Unsteady gait. Evaluate for cerebrovascular accident. COMPARISON STUDY: MRI of the brain February 25, 2013. Head CT January 25, 2019. TECHNIQUE: Utilizing a 1.5 Leticia magnet and dedicated coil, multiplanar, multiecho imaging of the bra in was performed without IV contrast. FINDINGS: There are no foci of acute diffusion to suggest acute infarct. No acute intracranial hemorr janell, midline shift or mass effect is present. There is mild atrophy. Ventricular system is unremarka ble for age. Basilar cisterns are patent. There are no extra-axial collections. Numerous white matter T2 hyperintense foci are similar to previous MRI. These suggest small vessel disease. No intracrania l masses are identified on this unenhanced exam. There is no mastoid fluid. IMPRESSION: No acute intracranial findings. Electronically signed by: Reese Leos M.D. 01/26/2019 12:16 PM
[2019-01-26] MEDS ORDERED: HEPARIN (PORCINE) 1000 UNIT/ML 10 ML (CATH LAB USE ONLY) ONE (13:40)
[2019-01-26] MEDS ORDERED: fentaNYL citrate 100 MCG/2 ML VIAL ONE (13:40)
[2019-01-26] MEDS ORDERED: MIDAZOLAM HCL 1 MG/ML 2ML VIAL ONE (13:40)
[2019-01-26] MEDS ORDERED: NiCARDipine HCL INJ 2.5 MG/ML 10 ML AMP ONE (13:40)
[2019-01-26] MEDS ORDERED: NITROGLYCERIN/D5W 100MCG/ML 20ML SYR ONE (13:41)
--- NOTE | 2019-01-26 13:54 | Pre Anesthesia Assessment ---
Date of Service January 26, 2019 Pre Sedation Assessment Vital Signs Temp Pulse Pulse Resp BP Pulse Ox 01/27/19 11:10 36.9 C 53 L 18 108/60 96 01/27/19 07:45 59 L 01/27/19 07:05 36.9 C 56 L 17 132/55 L 98 01/27/19 04:00 36.8 C 59 L 17 117/53 L 96 01/26/19 23:56 37.5 C 66 17 108/63 95 01/26/19 19:45 37.0 C 73 17 148/72 H 97 01/26/19 17:59 36.8 C 44 L 14 160/90 H 96 01/26/19 17:28 36.8 C 57 L 16 171/13 H 96 01/26/19 17:13 36.8 C 57 L 16 167/88 H 97 01/26/19 16:59 36.7 C 61 16 142/63 H 97 01/26/19 16:47 36.7 C 57 L 16 167/78 H 99 01/26/19 16:44 36.7 C 59 L 16 153/110 H 97 01/26/19 16:37 36.6 C 57 L 16 167/78 H 99 01/26/19 12:00 36.7 C 60 18 132/68 96 Cardiovascular RRR, no murmur, no edema Respiratory normal respiratory effort, lungs clear to auscultation Pre-Sedation Airway Assessment Smoking Status: Never smoker Mallampati Class: II ASA: ASA3 Procedure Planning Contraindications for Sedation: none Current Medications Reviewed: Yes Notes The planned sedation has been discussed with the patient. Informed Consent was obtained. I have identified the patient, determined the appropriateness of sedation and have assessed the patient immediately prior to the procedure. All medicine(s) and interventions are by my order.
--- NOTE | 2019-01-26 14:50 | Post Anesthesia Assessment ---
Date of Service January 26, 2019 Post Sedation Assessment Vital Signs Temp Pulse Pulse Resp BP Pulse Ox 01/27/19 11:10 36.9 C 53 L 18 108/60 96 01/27/19 07:45 59 L 01/27/19 07:05 36.9 C 56 L 17 132/55 L 98 01/27/19 04:00 36.8 C 59 L 17 117/53 L 96 01/26/19 23:56 37.5 C 66 17 108/63 95 01/26/19 19:45 37.0 C 73 17 148/72 H 97 01/26/19 17:59 36.8 C 44 L 14 160/90 H 96 01/26/19 17:28 36.8 C 57 L 16 171/13 H 96 01/26/19 17:13 36.8 C 57 L 16 167/88 H 97 01/26/19 16:59 36.7 C 61 16 142/63 H 97 01/26/19 16:47 36.7 C 57 L 16 167/78 H 99 01/26/19 16:44 36.7 C 59 L 16 153/110 H 97 01/26/19 16:37 36.6 C 57 L 16 167/78 H 99 01/26/19 12:00 36.7 C 60 18 132/68 96 Recovery Score Activity: Moves 4 extremities Respiration: Deep Breath/Cough Circulation: +/-20% PreAnes Value Consciousness: Arouseable (by name) Oxygen Saturation: > 92% On Room Air Post Sedation Plan On clinical assessment, the patient appears to have tolerated the sedation without complications. Patient is recovering as anticipated. Patient will continue to be monitored by nursing and may be discharged when sedation discharge criteria are met per below protocol. Upon Completions of procedure and additional 15 minutes continue every 5 minute vital signs and the P.A.R. score; then discharge to a Phase I or Fast Track to Phase II per the following guidelines: * Discharge Patient to appropriate Phase II area if PAR is 8 or greater or return to pre- procedure baseline. The post - procedure orders will be as directed. * If PAR score is less than 8 or not return to pre-procedure baseline then patient will follow Phase I monitoring till PAR is reached for Phase II. The Phase I may be done in procedure room or may call to secure a Phase I area. * If naloxone or flumazenil are used for reversal, hold in Phase I for continued monitoring from when last reversal dose was given for a minimum of 60 minutes or longer pending the nurse and/or physician discretion of patient condition before discharge to Phase II. Please call the Sedation Physician to re-evaluate and complete post-note for discharge to Phase II area. Do NOT discharge from procedure sedation or Phase 1 until post- sedation evaluation note is complete by procedure /sedation MD Sedation Discharge Instructions to be given to the patient at discharge to home.
--- NOTE | 2019-01-26 14:55 | Cardiac Catheterization ---
Cardiac Cath Procedure Full Procedure Date January 26, 2019 Pre-Procedure Diagnosis Pre-Procedure Diagnosis: Non STEMI AUC Score AUC Score: 8 Post-Procedure Diagnosis Post-Procedure Diagnosis: Moderate CAD and Normal LV Systolic Function Procedure(s) Performed Procedure(s) Performed: Coronary Angiography and Left Heart Cath Collar Padder Blindstitch Homer Nash DO Medical Instrument Cable Fabricator(s) Jewell RTR Estimated Blood Loss Estimated Blood Loss: 8cc Medication(s) Medication(s): Lidocaine 1%, Nicardipine, Nitroglycerin and Versed Summary of Findings Calcified ostial Left with 30-40% stenosis Moderate diffuse proximal left anterior descending artery disease with mild stenosis angiographically Hemodynamics Rest Ao:: 120/45/73 Final Ao: 162/52/95 LV: 151/0/13 Recommendations Recommendations: Management Recommendatons (IVUS / FFR of left main) Specimens Specimens: None Radiation Exposure (mGy) 1021 Contrast (mls) 90 Fluids (cc crystalloids) Fluids (cc crystalloids): 100cc Nss Anesthesia Moderate Sedation. Start 1356. End 1500. Sedation Monitor: Bri WILBURN Procedural Complication(s) None Disposition golf course laborer for FFR/ IVUS ACC Data: Travertine Installer Cardiac Status Clinical evaluation leading to the procedure CAD Presenation: Non STEMI Anginal Classification: CCS IV Heart Failure: No Cardiogenic Shock within 24 Hours: No Cardiac Arrest within 24 Hours: No Imaging Studies Past 6 Months: No Stress Studies Past 6 Months: No Coronary Anatomy Dominant: Right Left Main (% Stenosis): Ostial (Moderate calcification. 40%) and Mid (30%) LAD (% Stenosis): Ostial (Small type 1 vessel. Moderate calcification, 30%), Proximal (Moderate proximal calcification. 30% diffuse disease.) and Distal (tapers to 1mm diameter) D1 (% Stenosis): Ostial (30% extending to proximal segment) D2 (% Stenosis): Mid (10%) Circumflex (% Stenosis): Mid (10%) OM1 (% Stenosis): Normal L PL1 (% Stenosis): Normal RCA (% Stenosis): Proximal (10%), Mid (10%) and Distal (20%) R PDA (% Stenosis): Proximal (20%) R PL1 (% Stenosis): Normal R PL2 (% Stenosis): Normal AM (% Stenosis): Normal Ramus (% Stenosis): Normal (small vessel) Diagnostic Physicians Name: Homer Nash DO Status: Urgent Closure Device Percutaneous Entry Location: Radial Closure Device: Radial Band Recommendations: Management Recommendatons (IVUS / FFR of left main) Intraprocedure Events Significant Disection: No Perforation: No
--- NOTE | 2019-01-26 15:12 | Neurology Consultation ---
Date of Consultation January 26, 2019 Assessment & Plan (1) Hypertension: (2) Dizziness: An 83 year old woman admitted with positional dizziness (improved with rest) on 01/25/2019. On admission noted to have mildly elevated troponin and underwent cardiac catheterization yesterday which showed CAD. No stent. MRI brain was performed and showed chronic subcortical white matter changes suggestive of chronic microvascular ischemic changes. Patient was seen and examined this morning. No focal neuro deficits noted on examine. I do not believe this patient had a TIA and I suspect symptoms were likely peripheral. Agree with continuing antiplatlet agent and optimizing blood pressures. PT/OT for discharge needs. Ok to discharge from Neuro standpoint. Patient can follow up with neurology as needed. (3) Non-ST elevation UT (NSTEMI): History of Present Illness Attending Physician: Yaya Varner MD History of Present Illness An 83 year old woman admitted for dizzines while walking. She has a history of HTN and HLD. She is on ASA. Denies vertigo or dilpopia. Reports feeling well this morning. States she felt dizzy or off balance while walking. In the ED patient noted to have a milldy elevated troponins. Cardiology consulted and performed cardiac cath yesterday. No stent. Recommend medical management. Noted to have CAD. Neurology was consulted for dizziness. MRI brain was preformed yesterday and negative for acute stroke. Allergies Allergy/AdvReac Type Severity Reaction Status Date / Time No Known Allergies Allergy Verified 01/25/19 11:06 Home Medications Home Medications Medication Instructions Recorded Confirmed Type aspirin 81 mg tablet,delayed 81 mg PO DAILY 03/21/18 01/25/19 History release calcium carbonate 500 mg (1,250 1 tab PO BID 03/21/18 01/25/19 History mg)-vitamin D3 200 unit tablet gabapentin 200 mg PO AMPM 10/15/18 01/25/19 History omeprazole 20 mg PO BID 10/15/18 01/25/19 History biotin 5 mg PO DIRECTED 01/25/19 01/25/19 History diclofenac sodium 2 g TOPICAL BID PRN 01/25/19 01/25/19 History lactase 3,000 unit PO AC PRN 01/25/19 01/25/19 History nitroglycerin 0.4 mg SUBLINGUAL UD 01/25/19 01/25/19 History tramadol 50 mg PO Q6 PRN 01/25/19 01/25/19 History amlodipine [Norvasc] 2.5 mg PO DAILY 30 Days #15 tab 01/27/19 Rx atorvastatin 20 mg PO HS 30 Days #30 tab 01/27/19 Rx metoprolol succinate 25 mg PO QAM 30 Days #30 tab 01/27/19 Rx Patient History Medical History Chest pain (Acute) Hypertension (Acute) Low back pain (Acute) Lumbar disc lesion (Acute) Surgical History Hx of cholecystectomy (Inactive) Family History Other No pertinent family history Social History Preferred Language: Divehi 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 Beliefs That Will Affect Care: Presybeterian Presybeterian Beliefs: Catholicism Current Living Situation: Family Current Living Situation Comment: Lives with grandsonMau Other Information That Helps Us Care for You: No Feels Safe at Home: Yes Safety Concerns: Feels Safe At This Time Smoking Status: Never smoker Do You Dip or Chew Tobacco: No Second Hand Exposure: No Tobacco Cessation Education Requested by Patient: No Hx Alcohol Use: No Hx Substance Use: No Physical Exam Physical Exam: EXAM: Constitutional: appearance normally developed, well nourished and non-obese Head and Face: normocephalic and atraumatic Eyes: normal lids, normal conjunctiva Neck: supple Respiratory: normal effort Cardiovascular: normal pulses Abdomen: non distended Skin: no rashes, lesions, or ulcers noted Psychiatric: normal judgement and insight, normal mood and normal affect NEUROLOGIC EXAMINATION: Appearance: no acute distress Orientation: awake, alert and oriented x 3 Mental Status: alert Memory: Good Attention: normal Knowledge: appropriate Language: no aphasia Speech: no dysarthria Cranial Nerves: CN 2 - no visual defect on confrontation and pupils round, equal, reactive to light CN 3, 4, 6 - extra-ocular movements intact and no nystagmus CN 5 - facial sensation intact CN 7 - no facial asymmetry CN 8 - intact hearing CN 9, 10 - palate symmetric CN 11 - good shoulder shrug CN 12 - tongue midline Gait: deferred Coordination: no ataxia with finger to nose testing Sensory: intact and symmetric to light touch, position sense intact Muscle Tone: normal Muscle exam: 5/5 throughout, EHL 5/5 Reflexes: Negative orozco, No clonus, toes flexor Results & Data Vital Signs (Past 12 Hours) Vital Signs Temp Pulse Pulse Resp BP Pulse Ox 01/26/19 12:00 36.7 C 60 18 132/68 96 01/26/19 07:52 36.5 C 61 18 167/75 H 95 01/26/19 07:40 73 01/26/19 04:17 36.7 C 67 18 159/69 H 96 Diagnostic Findings MRI brain on 01/26/2019: IMPRESSION: No acute intracranial findings. MRI brain reviewed and my impression is chronic subcortical white matter changes on T2 FLAIR coronal suggestive of CMIC. (1) Hypertension Hypertension type: unspecified Qualified Code(s): I10 - Essential (primary) hypertension
[2019-01-26] MEDS ORDERED: ADENOSINE IV SOLN 3 MG/ML 20 ML VIAL IV ONE (15:33)
--- NOTE | 2019-01-26 16:05 | Hospitalist Progress Note ---
Date of Service January 26, 2019 Assessment & Plan (1) Dizziness: (2) Acute electrocardiogram changes: Patient is an 83 yr female who presents with one week of dizziness, generalized weakness, fatigue, transient jaw pain 2 days prior to admission R/O ACS EKG: T wave inversion in tamia-lateral leads ECHO: Compared to prior study, there is no significant change Mild troponin elevation the trended down Denies any chest pain, shortness of breath S/P Cardiac Cath: Calcified ostial Left with 40% stenosis IV heparin discontinued Continue aspirin, statin Appreciate cardiology input (3) B12 deficiency: Chronic Continue monthly injections (4) Osteoarthritis: (5) DDD (degenerative disc disease): On voltaren gel PRN and Tramadol PRN monitor (6) GERD (gastroesophageal reflux disease): Stable Continue PPI (7) Hyperlipidemia: On Simvastatin DVT Px: On Heparin ggt Code Status FULL CODE Subjective Patient is seen and examined at the bedside. Reports generalized weakness Dizziness improved Had Cardiac Cath today MRI brain showed no acute findings Denies any chest pain, SOB, nausea, abd pain Review of Systems Review of Systems: All systems reviewed & are unremarkable except as noted in HPI & below Physical Exam Physical Exam: Physical Exam: Vitals signs as noted above General Appearance:Moderately built and nourished, no apparent distress Head: normocephalic, Atraumatic Eyes: normal inspection, EOMI Neck: supple, Trachea midline Respiratory/Chest: Normal breath sounds, CTA Cardiovascular: S1, S2, No murmur Abdomen/GI:Soft, Non tender, Bowel sounds present Extremities/Musculoskelatal:normal inspection, no edema Neurologic/Psych:AAOX3, grossly no focal neurological deficits, +Facial asymmetry Skin: normal color, warm Results & Data Vital Signs (Past 12 Hours) Vital Signs Temp Pulse Pulse Resp BP Pulse Ox 01/26/19 12:00 36.7 C 60 18 132/68 96 01/26/19 07:52 36.5 C 61 18 167/75 H 95 01/26/19 07:40 73 01/26/19 04:17 36.7 C 67 18 159/69 H 96 Laboratory Results Short CBC 01/26/19 Range/Units 05:49 WBC 10.38 (4.8-10.8) K/uL Hgb 11.7 L (12.0-16.0) g/dL Hct 36.5 L (37-47) % Plt Count 213 (130-400) K/uL BMP 01/26/19 05:49 Sodium 140 Potassium 3.7 Chloride 105 Carbon Dioxide 28 BUN 20 H Creatinine 0.90 Glucose 116 H Calcium 9.0 Cardiac Enzymes 01/25/19 01/25/19 Range/Units 18:27 22:53 Troponin I 0.078 H* 0.070 H* (0-0.045) ng/ml Diagnostic Findings Brain MRI: No acute intracranial findings.
--- NOTE | 2019-01-26 16:28 | Neurology Progress Note ---
Date of Service January 26, 2019 Subjective Neurology consulted for dizziness and weakness. Patient went for cardiac catheterization today. Had MRI brain this morning. Attempted to see patient. Went to anesthesia recovery to see patient. Patient was still in cardiac catheterization procedure at 16:00. Will plan to see patient tomorrow. Results & Data Vital Signs (Past 12 Hours) Vital Signs Temp Pulse Pulse Resp BP Pulse Ox 01/26/19 12:00 36.7 C 60 18 132/68 96 01/26/19 07:52 36.5 C 61 18 167/75 H 95 01/26/19 07:40 73
[2019-01-26] MEDS ORDERED: ACETAMINOPHEN 325 MG TAB PO PRN (16:47)
--- NOTE | 2019-01-26 18:11 | Cardiac Catheterization ---
Cardiac Cath Procedure Full Procedure Date January 26, 2019 Pre-Procedure Diagnosis Pre-Procedure Diagnosis: Non STEMI AUC Score AUC Score: 8 Post-Procedure Diagnosis Post-Procedure Diagnosis: Moderate CAD Procedure(s) Performed Procedure(s) Performed: Coronary Angiography, IVUS and Fractional Flow [place] Optical Advisor Luciano Peralta MD Tank Car Repairer(s) Jewell RTR Estimated Blood Loss Estimated Blood Loss: 10 Medication(s) Medication(s): Fentanyl, Heparin, Nicardipine, Nitroglycerin and Versed Summary of Findings Indication: Minimally elevated troponin For full details of patient's coronary angiography please cath report dictated by Dr. Nash. Briefly, patient found to have borderline left main vessel disease. Decision to further evaluate with IVUS, FFR. Procedure: Left main cannulated with JL 3.5 guide - BMW wire placed into distal LAD - IVUS placed into mid LAD -- severe, moderately calcified disease extending from mid LAD back to ostium (ostial LAD MLA 3.7 mm2). Mild, eccentric, calcified plaque at LM ostium but no significant stenosis. - FFR ACIST catheter placed into mid LAD - FFR 0.76 - BMW removed from LAD and placed into circumflex. - ACIST FFR placed into circumflex - FFR 0.86 - Post procedure angiography showed no apparent complications. Summary: 1. Non-obstructive eccentric left main disease 2. Severe diffuse ostial to mid disease in small LAD. Recommendations: - no focal targets for intervention in diffusely disease LAD. Recommend max imizing antianginal therapy. - Findings discussed with Dr. Nash. Hemodynamics Rest Ao:: -- Final Ao: -- LV: -- Recommendations Recommendations: Medical Therapy and/or Counseling and Management Recommendatons (IVUS / FFR of left main) Specimens Specimens: None Radiation Exposure (mGy) -- Contrast (mls) -- Drains Drains: none Anesthesia Moderate Sedation Procedural Complication(s) None Disposition PCU ACC Data: English Tutor Cardiac Status Clinical evaluation leading to the procedure CAD Presenation: Non STEMI Anginal Classification: CCS IV Heart Failure: No Cardiogenic Shock within 24 Hours: No Cardiac Arrest within 24 Hours: No Imaging Studies Past 6 Months: Yes Stress Studies Past 6 Months: No Diagnostic Physicians Name: Luciano Peralta MD Closure Device Recommendations: Medical Therapy and/or Counseling and Management Recommendatons (IVUS / FFR of left main) Intraprocedure Events Significant Disection: No Perforation: No
[2019-01-26] MEDS: METOPROLOL TARTRATE 25 MG TAB PO SCH (20:49)
[2019-01-26] MEDS: ATORVASTATIN 20 MG TAB PO SCH (20:50)
[2019-01-27] MEDS: NITROGLYCERIN 2% OINTMENT 30GM TUBE EXT SCH ×3 (00:10→11:07)
[2019-01-27] MEDS: CALCIUM 600MG + VIT D 400 IU TAB PO SCH (07:56)
[2019-01-27] MEDS: PANTOprazole 40 MG TAB PO SCH (07:56)
[2019-01-27] MEDS: GABAPENTIN 100 MG CAP PO SCH (07:57)
[2019-01-27] MEDS: AMLODIPINE BESYLATE 5 MG TAB PO SCH (07:57)
[2019-01-27] MEDS: METOPROLOL TARTRATE 25 MG TAB PO SCH (07:57)
[2019-01-27] MEDS ORDERED: Nursing to Pharmacy Communication ONE (08:00)
--- NOTE | 2019-01-27 11:32 | Cardiology Progress Note ---
Date of Service January 27, 2019 Assessment & Plan (1) Non-ST elevation AR (NSTEMI): Cardiac catheterization demonstrating mild calcified ostial left main disease which is not hemodynamically significant. Her left anterior descending artery is of small caliber, moderate calcified, diffusely diseased. The FFR was positive, however, there is no discrete target for intervention. Medical management recommended. Continue aspirin, and statin therapy. Transition patient from simvastatin to atorvastatin 40 mg daily at time of discharge. Low- dose beta-zarina added. Post catheterization activity restrictions listed below. Outpatient cardiology follow-up in 4 to 6 weeks. ACTIVITY RECOMMENDATIONS: Excess manipulation of the wrist should be avoided for the next 24-48 hours. * No lifting over 2 pounds (approximately a 1/2 gallon of milk) with the utilized arm for 24 hours. * No strenuous activity such as bowling or tennis for 3 days. * Keep the site of the procedure covered with a bandage for 24 hours. *You may shower the day after the procedure. Do not take a tub bath or submerge the puncture site in water for the next 3 days. *Do not operate any motorized equipment for 3 days. SPECIAL CARE INSTRUCTIONS: The site may be slightly bruised and sore following your procedure. Should any of the following occur, contact the Dr. who performed your procedure. 1. Redness/inflammation, swelling, chills, or fever, or colored drainage at procedure site within 3-7 days after your procedure. 2. Coldness, discoloration, ongoing numbness, severe pain, or swelling. Expect mild tingling of hand and tenderness at the puncture site for up to three days. If this persists beyond three days, or other symptoms develop, notify the Dr. who performed your procedure. BLEEDING: If the procedure site on your wrist begins to bleed, do not panic 1. Place 1 or 2 fingers firmly just slightly above the insertion site to stop the bleeding. You may be able to feel your pulse as you hold pressure. 2. Lift your finger after 5 minutes to see if the bleeding has stopped. 3. Once the bleeding has stopped, gently wipe the wrist area clean with a bandage. * If the bleeding from your wrist does not stop after 10 minutes, or if there is a large amount of bleeding or spurting, call 911 (do not drive yourself to the hospital). SKIN IRRITATION: * You may experience some redness and/or swelling in the area where radiation was administered. If any skin irritation occurs, please contact your family physician. Subjective Patient seen and examined the bedside. Denies chest pain or shortness of breath. Low-dose metoprolol added last evening. Voices concern over lower extremity weakness with ambulation. Denies orthopnea, PND, lower extremity edema, claudication. Offers no other concerns/complaints at this time. Review of Systems Review of Systems: All systems reviewed & are unremarkable except as noted in HPI & below Physical Exam Physical Exam: General: NAD, AAO x3, well nourished. HEENT: Normocephalic. Atraumatic. Conjunctiva pink, no scleral icterus. Neck: No carotid bruits, the carotid upstrokes are brisk. No JVD. No HJR Heart: Regular normal S-1 and S-2 no S-3 or S-4 gallop. No murmurs or rub appreciated. PMI is not displaced. No RV heave. Lungs: Clear bilateral without rales , rhonchi, or wheeze. Abdomen: Normal bowel sounds. Soft. Nontender. No masses or organomegaly. No abdominal bruits. Extremities: Right upper extremity cath site without ecchymosis or hematoma. No clubbing, cyanosis, or edema of the lower extremities. Pulses: radial=2/4, Dorsalis pedis =2/4, posterior tibial=2/4. Neuro: Cranial nerves grossly intact. Mild facial asymmetry. No focal motor deficit. Results & Data Vital Signs (Past 12 Hours) Vital Signs Temp Pulse Pulse Resp BP Pulse Ox 01/27/19 11:10 36.9 C 53 L 18 108/60 96 01/27/19 07:45 59 L 01/27/19 07:05 36.9 C 56 L 17 132/55 L 98 01/27/19 04:00 36.8 C 59 L 17 117/53 L 96 01/26/19 23:56 37.5 C 66 17 108/63 95 Laboratory Results Laboratory Results - last 24 hr 01/26/19 14:52 Activ Coag Time Kaolin 197 H
--- NOTE | 2019-01-27 12:08 | Hospitalist Progress Note ---
Date of Service January 27, 2019 Assessment & Plan (1) Dizziness: (2) Acute electrocardiogram changes: Patient is an 83 yr female who presents with one week of dizziness, generalized weakness, fatigue, transient jaw pain 2 days prior to admission NSTEMI EKG: T wave inversion in tamia-lateral leads ECHO: Compared to prior study, there is no significant change Mild troponin elevation the trended down Denies any chest pain, shortness of breath S/P Cardiac Cath: Cardiac catheterization demonstrating mild calcified ostial left main disease which is not hemodynamically significant. Her left anterior descending artery is of small caliber, moderate calcified, diffusely diseased. IV heparin discontinued Continue aspirin, statin Appreciate cardiology and Neurology input Added low dose metoprolol Simvastatin changed to atorvastatin Counseled on life style changes Needs cardiology follow-up in 4 to 6 weeks. (3) B12 deficiency: Chronic Continue monthly injections (4) Osteoarthritis: (5) DDD (degenerative disc disease): On voltaren gel PRN and Tramadol PRN monitor (6) GERD (gastroesophageal reflux disease): Stable Continue PPI (7) Hyperlipidemia: On Simvastatin DVT Px: Was on Heparin ggt Code Status FULL CODE Disposition: Plan to discharge home today Subjective Patient is seen and examined at the bedside. Doing well this morning Ambulating in hallways with no issues Dizziness resolved Discussed with neurology today Denies any chest pain, SOB, nausea, abd pain Family at bedside No other complaints Review of Systems Review of Systems: All systems reviewed & are unremarkable except as noted in HPI & below Physical Exam Physical Exam: Physical Exam: Vitals signs as noted above General Appearance:Moderately built and nourished, no apparent distress Head: normocephalic, Atraumatic Eyes: normal inspection, EOMI Neck: supple, Trachea midline Respiratory/Chest: Normal breath sounds, CTA Cardiovascular: S1, S2, No murmur Abdomen/GI:Soft, Non tender, Bowel sounds present Extremities/Musculoskelatal:normal inspection, no edema Neurologic/Psych:AAOX3, grossly no focal neurological deficits, +Facial asymmetry Skin: normal color, warm Results & Data Vital Signs (Past 12 Hours) Vital Signs Temp Pulse Pulse Resp BP Pulse Ox 01/27/19 11:10 36.9 C 53 L 18 108/60 96 01/27/19 07:45 59 L 01/27/19 07:05 36.9 C 56 L 17 132/55 L 98 01/27/19 04:00 36.8 C 59 L 17 117/53 L 96
--- NOTE | 2019-01-27 12:24 | Discharge Summary ---
Date of Service January 27, 2019 Admission HPI Per Admitting Provider 83 yo F with PMHX: carotid stenosis, HLD, GERD, OA/DDD, Anemia, and B12 deficiency presents to [facility] for one week of dizziness, fatigue, weakness. Pt reports no worsening of symptoms today but called into her PCP as she wanted to figure out why she had been feeling this way and they advised her to go to the ED. Her daughter brought her into the ED today but during exam she is alone in the room. She has also noticed over the last week that she easily fatigues with her normal activities. She lives alone and takes care of her home by herself. Pt reports a normal appetite. She denies any recent illnesses. One year ago she was admitted to the hospital for chest pain-- had normal stress echo at that time with EF 60-65%. She has not had any major illnesses or issues since that admission. Pt denies dizziness at this time. She denies chest pain, SOB, headaches, vision changes, cough, edema of legs, abdominal pain, dysuria, hematuria, decreased urinary output. She received Heparin bolus and ASA 324 mg in the ED In the ED: BP 110/70, HR 58, O2 sat 96% RA WBC: 12.69, H/H 11.8/36.9, Cr 0.9, BUN 25, Troponin elevated to 0.119 CXR: no acute cardiopulm findings CT Head: no acute intracranial abnormalities EKG: rate 60 bpm, NSR with new T wave inversion of anterior leads Pt is a FULL CODE Admission Exam Per Admitting Provider GENERAL: alert, healthy, no distress, well nourished and well developed, pleasant, resting comfortably in bed, conversing easily HEAD: Normocephalic, atraumatic EYES: PERRL, EOMI, Conjunctiva are pink and non-injected, sclera clear HEART: regular rate & rhythm, no murmurs and no gallops, no edema LUNGS: clear to auscultation bilaterally, no wheezing, rales or rhonchi ABDOMEN: abdomen soft, non-tender, normal bowel sounds x 4 quadrants, no masses or organomegaly, no rebound or guarding, no CVA tenderness, no bladder distention identified and no bruits MSK: moves all four extremities, no edema, normal strength and sensation throughout SKIN: skin color, texture, turgor are normal, no rashes or significant lesions NEURO: alert & oriented x 3 with fluent speech, no focal motor/sensory deficits Principal Diagnosis Discharge Information Discharge Diagnosis Coronary artery disease Dizziness Hypertension Discharge Goals Decrease discomfort,Improve function,Improve disease control Discharge Activity Limitations Resume your previous activity Discharge Data Allergies Allergy/AdvReac Type Severity Reaction Status Date / Time No Known Allergies Allergy Verified 01/25/19 11:06 Consultations 01/25/19 12:21 ED Decision to Admit Stat 01/25/19 15:02 Consult Cardiology Routine Consult Case Management - Discharge Planning Routine 01/26/19 09:08 Consult Neurology Routine 01/26/19 12:40 Consult Cardiac Catheterization Routine Procedures Performed Operation Date: 01/26/19 13:00 Actual Procedures p Cath, Left with Cors and Vent - Mark Peralta MD s Cineradiography w/Routine Exam - Mark Peralta MD s Fraction Flow [place] SGL Erika Peralta MD s IVUS Coronary Single Vessel - MD rai Dykes Fraction Flow [place] Addl Erika Peralta MD BRAIN MRI: No acute intracranial findings. CXR: Cardiomegaly. No other convincing evidence of acute cardiopulmonary disease. ECHO:--Compared to prior studies there is no significant change Ejection fraction 55 to 60% There is subtle hypokinesis involving the basal segment of the inferior wall The left atrium is mildly dilated Diastolic dysfunction, grade 2 Aortic valve sclerosis mild, with no significant aortic valvular stenosis There is mild mitral regurgitation There is mild tricuspid regurgitation Cardiac Catheterization: Summary: 1. Non-obstructive eccentric left main disease 2. Severe diffuse ostial to mid disease in small LAD. Recommendations: - no focal targets for intervention in diffusely disease LAD. Recommend maximizing antianginal therapy. - Findings discussed with Dr. Nash. Ordered Studies 01/25/19 10:41 CT head/brain wo con Stat 01/26/19 10:03 MR brain wo con Urgent 01/26/19 13:31 CL Cath Imgs for PACS use only Routine 01/26/19 16:44 CL IVUS Coronary Single Vessel Routine Hospital Course (1) Dizziness: (2) Acute electrocardiogram changes: Patient is an 83 yr female who presents with one week of dizziness, generalized weakness, fatigue, transient jaw pain 2 days prior to admission NSTEMI EKG: T wave inversion in tamia-lateral leads ECHO: Compared to prior study, there is no significant change Mild troponin elevation the trended down Denies any chest pain, shortness of breath S/P Cardiac Cath: Cardiac catheterization demonstrating mild calcified ostial left main disease which is not hemodynamically significant. Her left anterior descending artery is of small caliber, moderate calcified, diffusely diseased. IV heparin discontinued Continue aspirin, statin Appreciate cardiology and Neurology input Added low dose metoprolol Simvastatin changed to atorvastatin Counseled on life style changes Needs cardiology follow-up in 4 to 6 weeks. (3) B12 deficiency: Chronic Continue monthly injections (4) Osteoarthritis: (5) DDD (degenerative disc disease): On voltaren gel PRN and Tramadol PRN monitor (6) GERD (gastroesophageal reflux disease): Stable Continue PPI (7) Hyperlipidemia: On Simvastatin DVT Px: Was on Heparin ggt Code Status FULL CODE Disposition: Plan to discharge home today Total Time Total Time Spent Total Time Spent (In Minutes): 37 MINUTES Total Time Includes: Examination of the Patient, Discharge Planning, Medication Reconciliation, Communication With Other Providers and Other Discharge Plan Discharge Items Patient Disposition: Home - Self-Care Reason For Visit: DIZZINESS, FATIGUE Discharge Diagnosis: Coronary artery disease Dizziness Hypertension Discharge Goals: Decrease discomfort, Improve disease control and Improve function Activity: Resume your previous activity Exercise/Sports: Gradually increase as tolerated Non-emergency contact: Primary Care Provider and Neck Pinner Call non-emergency contact if: you have any medication questions, your symptoms worsen, your pain is not controlled, your pain is worsening, your pain is unusual for you, your pain is concerning for you, you have a fever, your wound has increased redness, your wound has increased drainage and your wound pain has increased Follow-up/Referrals: Seamus Del Angel, DO [Primary Care Provider] - Diet: Heart Healthy Addtl Provider Instructions: Follow-up with your primary care physician Dr. Mendoza in 1 week Follow-up with your taping machine operator Dr. Nash in 4-6 weeks Seek immediate medical attention if your symptoms reoccur or worsen Lifestyle Changes: * Maintain a healthy weight. Get help to lose any extra pounds. * Cut back on salt. * Limit canned, dried, packaged, and fast foods. * Don't add salt to your food. * Season foods with herbs instead of salt when you cook. * Break the smoking habit. Enroll in a stop-smoking program to improve your chances of success. * Limit fatty foods. * Ask your doctor about having your lipid levels checked regularly. * Build up your activity according to your doctor's recommendation. * Ask your doctor when it's okay to resume sexual activity. * Tell your doctor about any erectile dysfunction (ED) medication you are taking. Some ED medications are not safe if you take certain heart medications. * Try to manage stress. Follow Up: It is important for you to keep your follow up appointments with your medical provider. ACTIVITY RECOMMENDATIONS: Excess manipulation of the wrist should be avoided for the next 24-48 hours. * No lifting over 2 pounds (approximately a 1/2 gallon of milk) with the utilized arm for 24 hours. * No strenuous activity such as bowling or tennis for 3 days. * Keep the site of the procedure covered with a bandage for 24 hours. *You may shower the day after the procedure. Do not take a tub bath or submerge the puncture site in water for the next 3 days. *Do not operate any motorized equipment for 3 days. SPECIAL CARE INSTRUCTIONS: The site may be slightly bruised and sore following your procedure. Should any of the following occur, contact the Dr. who performed your procedure. 1. Redness/inflammation, swelling, chills, or fever, or colored drainage at procedure site within 3-7 days after your procedure. 2. Coldness, discoloration, ongoing numbness, severe pain, or swelling. Expect mild tingling of hand and tenderness at the puncture site for up to three days. If this persists beyond three days, or other symptoms develop, notify the Dr. who performed your procedure. BLEEDING: If the procedure site on your wrist begins to bleed, do not panic 1. Place 1 or 2 fingers firmly just slightly above the insertion site to stop the bleeding. You may be able to feel your pulse as you hold pressure. 2. Lift your finger after 5 minutes to see if the bleeding has stopped. 3. Once the bleeding has stopped, gently wipe the wrist area clean with a bandage. * If the bleeding from your wrist does not stop after 10 minutes, or if there is a large amount of bleeding or spurting, call 911 (do not drive yourself to the hospital). SKIN IRRITATION: * You may experience some redness and/or swelling in the area where radiation was administered. If any skin irritation occurs, please contact your fam Prescriptions: New atorvastatin 20 mg Tablet 20 mg PO HS 30 Days Qty: 30 RF: 1 amlodipine [Norvasc] 5 mg Tablet 2.5 mg PO DAILY 30 Days Qty: 15 RF: 1 metoprolol succinate 25 mg Tablet Extended Release 24 Hr 25 mg PO QAM 30 Days Qty: 30 RF: 1 Continued aspirin 81 mg tablet,delayed release (DR/EC) 81 mg PO DAILY RF: 0 calcium carbonate-vitamin D3 500 mg(1,250mg) -200 unit tablet 1 tab PO BID RF: 0 omeprazole 20 mg capsule,delayed release(DR/EC) 20 mg PO BID RF: 0 gabapentin 100 mg capsule 200 mg PO AMPM RF: 0 nitroglycerin 0.4 mg tablet, sublingual 0.4 mg sublingual UD RF: 0 biotin 5 mg Capsule 5 mg PO DIRECTED RF: 0 tramadol 50 mg tablet 50 mg PO Q6 PRN (Reason: Pain) RF: 0 lactase 3,000 unit Tablet 3,000 unit PO AC PRN (Reason: gi upset) RF: 0 diclofenac sodium 1 % gel 2 g topical BID PRN (Reason: Pain) RF: 0 Discontinued simvastatin 40 mg tablet 40 mg PO DAILY RF: 0 Stand-Alone Forms: [facility] Discharge Orders: Discharge Order (Routine); Ordered 01/27/19 Ordered By: Yaya Varner Admission Data Admit Date/Time: 01/26/19 09:04 Attending Provider: Yaya Varner Admit Provider: Tip Urban Primary Care Provider: Seamus Del Angel Other Providers: Bob Guerrier ; Tip Urban ; Xu Bernal ; Homer Nash Service: Telemetry Medical Other Interventions: Discharge Summary Assessment (RN) Last Done: 01/27/19 13:15 Pending Studies at Discharge: No DC Date/Time DO NOT enter until pt leaves facility: 01/27/19 13:55
[2019-01-27] MEDS ORDERED: ASPIRIN 81 MG ECTAB PO SCH (21:00)
[2019-01-28] MEDS ORDERED: METOPROLOL SUCC 25MG EXT REL TAB PO SCH (09:00)
== END 2019-01-27 13:55 | disposition home or self-care (01) | DRG 282 ==
LOC: ED 10:19 → 2N 10:19 → 2S 01-26 16:34

== ENCOUNTER 2022-08-22 19:17 | Inpatient (IN) ==
[2022-08-22] MEDS ORDERED: PHYTONADIONE 10 MG in DEXTROSE 5% 50 ML IV ONE (20:24)
[2022-08-22] MEDS ORDERED: PROTHROMBIN COMP KCENTRA IV STA (20:24)
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
[2022-08-22 20:43] LABS: Basophils # (auto) 0.04 K/uL (0-0.2); Basophils % (auto) 0.4 %; Eosinophils # (auto) 0.34 K/uL (0-0.50); Eosinophils % (auto) 3.4 %; Hematocrit (blood only) 38.4 % (37.0-47.0); Hemoglobin 12.3 g/dl (12.0-16.0); Immature Granulocytes # (auto) 0.02 K/uL (0.01-0.20); Immature Granulocytes % (auto) 0.2 %; Lymphocytes # (auto) 3.28 K/uL (1.2-3.4); Lymphocytes % (auto) 32.8 %; Mean Corpuscular Hemoglobin 27.3 pg (25.0-34.0); Mean Corpuscular Volume 85.3 fL (80.0-100.0); Mean Platelet Volume 9.7 fL (9.4-12.4); Monocytes # (auto) 0.58 K/uL (0.11-0.59); Monocytes % (auto) 5.8 %; Neutrophils # (auto) 5.75 K/uL (1.40-6.50); Neutrophils % (auto) 57.4 %; Platelet Count 256 K/uL (130-400); RDW Coefficient of Variation 14.2 % (11.5-14.5); RDW Standard Deviation 43.9 fL (36.4-46.3); White Blood Count 10.01 K/ul (4.8-10.8)
[2022-08-22 20:57] LABS: Albumin Globulin Ratio 1.2 (0.9-2); BUN Creatinine Ratio 31.8 (10-20); Bilirubin,Total 0.5 mg/dl (0.2-1.0); Calcium 9.3 mg/dl (8.5-10.1); Creatinine Clr Calc Pharmacy 35.6 ml/min; Est GFR (African American) 69.9 ml/min; Est GFR (Non-African American) 60.3 ml/min; Globulin 3.4 gm/dl (2.5-4.0); Total Protein 7.4 gm/dl (6.0-8.3)
[2022-08-22] MEDS ORDERED: PROTHROMBIN COMP CONC- KCENTRA 1,500 UNITS in SYRINGE 0 ML IV SCH (21:00)
[2022-08-22 21:02] LABS: Troponin I High Sensitivity 11.4 pg/ml (0-14)
[2022-08-22 21:15] LABS: INR 2.9 (0.9-1.1); Partial Thromboplastin Ratio 1.4; Prothrombin Time 29.6 Seconds (9.0-12.0)
[2022-08-22 22:19] LABS: Magnesium 1.8 mg/dl (1.7-2.4)
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
[2022-08-22] MEDS ORDERED: LACTATED RINGER'S 1,000 ML IV STA (22:47)
[2022-08-23] MEDS ORDERED: ACETAMINOPHEN 325 MG TAB PO PRN (00:45)
[2022-08-23] MEDS ORDERED: traMADol HCL 50 MG TABLET PO PRN (00:45)
[2022-08-23] MEDS ORDERED: PROMETHAZINE HCL 6.25 MG in SODIUM CHLORIDE 0.9% 50 ML IV PRN (00:45)
[2022-08-23] MEDS ORDERED: DICLOFENAC SOD 1% GEL 100 GM TUBE EXT PRN (00:45)
[2022-08-23 00:51] LABS: Hematocrit (blood only) 34.4 % (37.0-47.0); Hemoglobin 11.1 g/dl (12.0-16.0)
[2022-08-23] MEDS: ATORVASTATIN 20 MG TAB PO SCH ×2 (01:20→20:03)
[2022-08-23] MEDS: METOPROLOL TARTRATE 25 MG TAB PO SCH ×3 (01:20→20:04)
[2022-08-23] MEDS ORDERED: CARBOHYDRATES FOR HYPOGLYCEMIA PO PRN (02:14)
[2022-08-23] MEDS ORDERED: GLUCAGON FOR INJ 1 MG VIAL SQ PRN (02:14)
[2022-08-23] MEDS ORDERED: DEXTROSE 50% 50 ML SYRINGE IV PRN (02:14)
[2022-08-23] MEDS ORDERED: GLUCOSE 10 TAB/TUBE PO PRN (02:14)
[2022-08-23] MEDS ORDERED: GLUCOSE 40% GEL 15 GM TUBE PO PRN (02:14)
[2022-08-23] MEDS: GABAPENTIN 300 MG CAP PO SCH ×2 (02:18→20:03)
[2022-08-23] MEDS: INSULIN ASPART PER UNIT SC SCH ×5 (02:37→20:40)
[2022-08-23 06:22] LABS: INR 1.3 (0.9-1.1); Prothrombin Time 13.3 Seconds (9.0-12.0)
[2022-08-23 06:43] LABS: BUN Creatinine Ratio 30.1 (10-20); Calcium 8.7 mg/dl (8.5-10.1); Est GFR (African American) 87.7 ml/min; Est GFR (Non-African American) 75.6 ml/min
[2022-08-23 06:51] LABS: Basophils # (auto) 0.03 K/uL (0-0.2); Basophils % (auto) 0.4 %; Eosinophils # (auto) 0.26 K/uL (0-0.50); Eosinophils % (auto) 3.5 %; Hematocrit (blood only) 32.6 % (37.0-47.0); Hemoglobin 10.5 g/dl (12.0-16.0); Immature Granulocytes # (auto) 0.03 K/uL (0.01-0.20); Immature Granulocytes % (auto) 0.4 %; Lymphocytes # (auto) 2.59 K/uL (1.2-3.4); Mean Corpuscular Hemoglobin 27.3 pg (25.0-34.0); Mean Corpuscular Hgb Conc 32.2 g/dL (32.0-36.0); Mean Corpuscular Volume 84.9 fL (80.0-100.0); Mean Platelet Volume 10.1 fL (9.4-12.4); Monocytes # (auto) 0.55 K/uL (0.11-0.59); Monocytes % (auto) 7.4 %; Neutrophils # (auto) 3.95 K/uL (1.40-6.50); Neutrophils % (auto) 53.3 %; Platelet Count 208 K/uL (130-400); RDW Coefficient of Variation 14.4 % (11.5-14.5); RDW Standard Deviation 44.7 fL (36.4-46.3); Red Blood Count 3.84 M/uL (4.20-5.40); White Blood Count 7.41 K/ul (4.8-10.8)
[2022-08-23 07:39] LABS: Estimated Average Glucose 137 mg/dl; Hemoglobin A1C 6.4 % (4.5-5.6)
[2022-08-23] MEDS: PANTOprazole 40 MG TAB PO SCH ×2 (07:51→20:03)
--- NOTE | 2022-08-23 08:49 | Electrocardiogram Report ---
Test Reason : Blood Pressure : / mmHG Vent. Rate : 089 BPM Atrial Rate : 102 BPM P-R Int : 000 ms QRS Dur : 120 ms QT Int : 400 ms P-R-T Axes : 000 -56 104 degrees QTc Int : 486 ms Atrial fibrillation with premature ventricular or aberrantly conducted complexes Left axis deviation Left ventricular hypertrophy with QRS widening Anteroseptal infarct (cited on or before 22-AUG-2022) Non-specific intra-ventricular conduction block Abnormal ECG When compared with ECG of 06-MAR-2022 18:04, Premature ventricular complexes are now Present Confirmed by Deric Rojas ([id number]) on 08/23/2022 8:48:43 AM Referred By: REFERRED SELF Confirmed By:Deric Rojas
[2022-08-23] MEDS ORDERED: CYANOCOBALAMIN 1000 MCG/ML VIAL IM ONE (09:00)
--- NOTE | 2022-08-23 11:06 | Hospitalist Progress Note ---
Date of Service August 23, 2022 Assessment & Plan (1) Acute lower GI bleeding: Plan: Bloody diarrhea symptoms in the setting of Coumadin coagulopathy, history A-fib Status post vitamin K/Kcentra administration at the ER. History GERD/diverticulosis as per records Awaiting GI recommendations. She remains on clear liquid diet and IV fluids. (2) Acute blood loss anemia: Plan: Baseline H&H is 12.3/38.4 on arrival yesterday. She has decreased by 2 g of hemoglobin to 10.5/33 this morning. Lightheadedness on standing. She continues on IV fluids at this time. Pending GI recommendations. Trend CBC. (3) Hypertension: Plan: Chronic, controlled but on the low side. She continues on losartan 25 mg p.o. nightly. Blood pressure currently 107/69. Will trend orthostatics and may consider holding losartan if she continues to bleed. (4) PAF (paroxysmal atrial fibrillation): Plan: She was first diagnosed with this in April 2022 and was started on Eliquis 2.5 twice daily. She was continued on aspirin 81 mg daily for known coronary heart disease.Unfortunately apixaban was cost prohibitive and she was switched to Coumadin and has been following with the anticoagulation clinic since that time. Coumadin has been held and rate is controlled with home metoprolol. (5) CAD (coronary artery disease): Plan: Chronic, stable. Holding baby aspirin and continue Lipitor, Cozaar, metoprolol per home regimen. (6) Hyperlipidemia: Plan: Chronic, stable. Continue atorvastatin per home regimen. DVT prophylaxis, SCDs and ambulation given acute bleeding Full code Disposition-pending GI recommendations Brianda Vidal DO [facility] hospitalist Admission and Anticipated Discharge Date Admission Date: August 22, 2022 Subjective 86-year-old diabetic female with paroxysmal atrial fibrillation on Coumadin and baby aspirin presented last night after a bright red bloody bowel movement at home. She reports her first episode was around 6:30 PM and then she had subsequent 5-6 BMs that were bloody. Since 1 AM she has had no further bowel movements. She denies any abdominal pain but does report some right flank pain that is nonspecific and severe rated 7 out of 10. She does have some lightheadedness when standing. She reports a history of colonoscopy approximately 7 to 8 years ago with polyps found at that time. She has no other history of blood per rectum. On arrival to the ER she was in atrial fibrillation with a rate of 89. She was given IV vitamin K 10 mg and Kcentra. She had no significant anemia. This morning she is denying any abdominal pain, chest pain or shortness of breat h. She appears comfortable on exam. Review of Systems Review of Systems: All systems reviewed negative except as indicated above. Physical Exam Physical Exam: CONSTITUTIONAL: WNWD, vitals as above, generally well- appearing, NAD EYES: normal conjunctivae, no scleral icterus ENT: external ear and nose normal, NECK: trachea midline RESPIRATORY: clear to auscultation bilaterally, no crackles, rales or wheezes, normal respiratory effort CARDIOVASCULAR: irregular rate and irregular rhythm, S1 and 2 heard without murmurs, gallops or rubs, no JVD, no peripheral edema CHEST: inspection of chest was normal GASTROINTESTINAL: soft, nontender, ND, no guarding MUSCULOSKELETAL: strength 5/5 throughout, head is normocephalic and atraumatic SKIN: warm and dry NEUROLOGIC: CN 2-12 grossly intact, no sensory deficit, normal cognition, normal speech, no tremor PSYCHIATRIC: alert cooperative and oriented to person, place and time. Euthymic mood, makes good eye contact, language grossly intact, recent and remote memory grossly intact. Results & Data Results & Data ([facility]) Vital Signs (Past 12 Hours) Vital Signs Temp Pulse Pulse Pulse Pulse Resp BP 08/23/22 10:45 36.6 C 62 14 107/69 08/23/22 08:21 36.6 C 62 14 115/70 08/23/22 03:23 36.6 C 56 L 16 08/23/22 00:50 78 08/23/22 01:08 36.5 C 81 18 146/81 H 08/23/22 00:30 36.5 C 81 16 146/81 H 08/23/22 00:30 08/23/22 00:23 82 14 08/23/22 00:08 67 14 BP Pulse Ox Pulse Ox O2 Del Method O2 Del Method 08/23/22 10:45 98 Room Air 08/23/22 08:21 97 Room Air 08/23/22 03:23 108/64 98 Room Air 08/23/22 00:50 08/23/22 01:08 100 Room Air 08/23/22 00:30 100 Room Air 08/23/22 00:30 100 Room Air 08/23/22 00:23 158/80 H 98 Room Air 08/23/22 00:08 158/80 H 97 Room Air Laboratory Results Short CBC 08/22/22 08/23/22 08/23/22 Range/Units 20:19 00:22 05:23 WBC 10.01 Cancelled (4.8-10.8) K/ul Hgb 12.3 11.1 L Cancelled (12.0-16.0) g/dl Hct 38.4 34.4 L Cancelled (37.0-47.0) % Plt Count 256 Cancelled (130-400) K/uL 08/23/22 Range/Units 05:23 WBC 7.41 (4.8-10.8) K/ul Hgb 10.5 L (12.0-16.0) g/dl Hct 32.6 L (37.0-47.0) % Plt Count 208 (130-400) K/uL BMP 08/22/22 08/23/22 20:19 05:23 Sodium 140 140 Potassium 4.0 4.0 Chloride 105 107 Carbon Dioxide 28 27 BUN 28 H 22 Creatinine 0.88 0.73 Glucose 99 99 Calcium 9.3 8.7 Liver Function 08/22/22 Range/Units 20:19 Total Bilirubin 0.5 (0.2-1.0) mg/dl AST 17 (13-39) U/L ALT 15 (7-52) U/L Alkaline Phosphatase 79 (34-104) U/L Albumin 4.0 (3.4-5.0) gm/dl Medications Administered Current Inpatient Medications Acetaminophen (Acetaminophen 325 Mg Tab) 650 mg PO Q4H PRN PRN Reason: Pain or Fever Stop: 09/22/22 00:44 Atorvastatin Calcium (Atorvastatin 20 Mg Tab) 20 mg PO HS ROSELIA Stop: 09/22/22 00:44 Last Admin: 08/23/22 01:20 Dose: 20 mg Dextrose (Dextrose 50% 50 Ml Syringe) 25 - 50 ml IV UD PRN; Protocol PRN Reason: Hypoglycemia Protocol Stop: 09/22/22 02:13 Diclofenac Sodium (Diclofenac Sod 1% Gel 100 Gm Tube) 2 gm EXT BID PRN; Protocol PRN Reason: joint pain Stop: 09/22/22 00:44 Gabapentin (Gabapentin 300 Mg Cap) 300 mg PO HS ROSELIA Stop: 09/22/22 01:34 Last Admin: 08/23/22 02:18 Dose: 300 mg Glucagon (Glucagon For Inj 1 Mg Vial) 1 mg SQ UD PRN; Protocol PRN Reason: Hypoglycemia Protocol Stop: 09/22/22 02:13 Glucose (Glucose 40% Gel 15 Gm Tube) 15 - 30 gm PO UD PRN; Protocol PRN Reason: Hypoglycemia Protocol Stop: 09/22/22 02:13 Glucose (Glucose 10 Tab/Tube) 4 - 8 tab PO UD PRN; Protocol PRN Reason: Hypoglycemia Treatment Stop: 09/22/22 02:13 Lactated Ringer's (Lr) 1,000 mls @ 50 mls/hr IV .Q20H STA Stop: 08/23/22 18:46 Last Admin: 08/23/22 00:22 Dose: 50 mls/hr Promethazine HCl 6.25 mg/ (Sodium Chloride) 50.25 mls @ 201 mls/hr IV Q6H PRN PRN Reason: Nausea And Vomiting Stop: 09/22/22 00:44 Insulin Aspart (Insulin Aspart Per Unit) 0 units SC ACHS ROSELIA Stop: 09/22/22 02:14 Last Admin: 08/23/22 09:19 Dose: Not Given Losartan Potassium (Losartan Potassium 25 Mg Tab) 25 mg PO HS ROSELIA Stop: 09/22/22 20:59 Metoprolol Tartrate (Metoprolol Tartrate 25 Mg Tab) 12.5 mg PO BID ROSELIA Stop: 09/22/22 00:44 Last Admin: 08/23/22 07:49 Dose: 12.5 mg Miscellaneous (Carbohydrates For Hypoglycemia ) 15 - 30 gm PO UD PRN PRN Reason: Hypoglycemia Protocol Stop: 09/22/22 02:13 Pantoprazole Sodium (Pantoprazole 40 Mg Tab) 40 mg PO BID ROSELIA Stop: 09/22/22 08:59 Last Admin: 08/23/22 07:51 Dose: 40 mg Tramadol HCl (Tramadol Hcl 50 Mg Tablet) 25 - 50 mg PO Q4H PRN PRN Reason: Pain Stop: 09/22/22 00:44
--- NOTE | 2022-08-23 13:43 | CT Scan Report ---
CT abd pelvis wo con CLINICAL HISTORY: right flank pain, rectal bleeding TECHNIQUE: Helical axial images of the abdomen and pelvis were obtained. Automated dose lowering tech niques and/or adjustment according to patient size were utilized for this exam. This exam was perfor med without intravenous contrast. CT DOSE: 276.67 mGy.cm COMPARISON: None available at the time of this dictation. FINDINGS: Lower chest: Prominent cardiomegaly is noted. Liver: Unremarkable. No focal lesions are seen. Gallbladder and biliary tree: Patient is status post cholecystectomy. No intra- or extrahepatic bilia ry ductal dilation. Pancreas: Unremarkable, no focal lesions. Spleen: Unremarkable. Adrenals: Unremarkable. Kidneys and ureters: Unremarkable. Bladder: Unremarkable. Reproductive organs: Prostatic calcifications are seen which may represent prior hemorrhage or granul omatous disease. Bowel: Diverticulosis is seen without evidence of diverticulitis. The appendix is normal. Lymph nodes Retroperitoneal: Unremarkable. Pelvic: Unremarkable. Mesenteric: Unremarkable. Peritoneum: Normal. Vessels: Atherosclerotic calcifications are seen. Abdominal wall: A fat-containing umbilical hernia is seen. Bones: Degenerative changes in the visualized spine. IMPRESSION: No acute abnormality, in particular no evidence of obstructive stones. ACT 112: Negative or not required by law. Electronically signed by: Weston Vigil M.D. 08/23/2022 1:42 PM
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
[2022-08-23 19:26] LABS: Hematocrit (blood only) 32.1 % (37.0-47.0); Hemoglobin 10.3 g/dl (12.0-16.0)
[2022-08-23] MEDS ORDERED: GABAPENTIN 300 MG CAP PO SCH (21:00)
[2022-08-23] MEDS ORDERED: LOSARTAN POTASSIUM 25 MG TAB PO SCH (21:00)
[2022-08-23 23:06] LABS: Adenovirus F 40/41 PCR Not Detected (NotDetected); Astrovirus PCR Not Detected (NotDetected); Cryptosporidium PCR Not Detected (NotDetected); Cyclospora cayetanensis PCR Not Detected (NotDetected); Entamoeba histolytica PCR Not Detected (NotDetected); Enteroaggregative E.coli(EAEC) Not Detected (NotDetected); Enteropathogenic E.coli (EPEC) Not Detected (NotDetected); Enterotoxigenic E.coli (ETEC) Not Detected (NotDetected); Giardia lamblia PCR Not Detected (NotDetected); Norovirus GI/GII PCR Not Detected (NotDetected); Plesiomonas shigelloides PCR Not Detected (NotDetected); Rotavirus A PCR Not Detected (NotDetected); Salmonella PCR Not Detected (NotDetected); Sapovirus PCR Not Detected (NotDetected); Shiga-like Toxin E.coli (STEC) Not Detected (NotDetected); Shigella/Enteroinvasive E.coli Not Detected (NotDetected); Vibrio cholerae PCR Not Detected (NotDetected); Vibrio species PCR Not Detected (NotDetected); Yersinia enterocolitica PCR Not Detected (NotDetected)
[2022-08-23 23:11] LABS: Campylobacter PCR DETECTED (NotDetected)
[2022-08-24 06:48] LABS: Hemoglobin 10.1 g/dl (12.0-16.0); Mean Corpuscular Hemoglobin 27.9 pg (25.0-34.0); Mean Corpuscular Hgb Conc 32.6 g/dL (32.0-36.0); Mean Corpuscular Volume 85.6 fL (80.0-100.0); Platelet Count 213 K/uL (130-400); RDW Coefficient of Variation 14.5 % (11.5-14.5); RDW Standard Deviation 44.7 fL (36.4-46.3); Red Blood Count 3.62 M/uL (4.20-5.40); White Blood Count 6.41 K/ul (4.8-10.8)
[2022-08-24 07:23] LABS: BUN Creatinine Ratio 22.6 (10-20); Calcium 9.3 mg/dl (8.5-10.1); Est GFR (African American) 65.4 ml/min; Est GFR (Non-African American) 56.4 ml/min
[2022-08-24 07:29] LABS: INR 1.1 (0.9-1.1)
--- NOTE | 2022-08-24 08:10 | Gastroenterology Progress Note ---
Date of Service August 24, 2022 Assessment & Plan (1) Campylobacter diarrhea: Plan: Pt mentions that the diarrhea preceded the onset of rectal bleed. The etiology of the rectal bleed may be Campylobacter vs. a diverticular bleed. (2) Rectal bleed: Plan Zithromax 500mg daily x 3 or if prefer due to restarting warfarin, could use Cipro 500mg BID x 7 days (reviewed up to date recommendations). Asked nursing to collect/send stool for C-diff sample. Advance diet. No current rectal bleeding, Hb stable - so OK to to restart warfarin if deemed clinically necessary by primary hospitalist. Would continue to defer colonoscopy because had one 18 months ago and both diverticular bleeding and Campylobacter are typically self limited and colonoscopy would not change the treatment/outcome. Discussed w Dr. Pablo and Dr. Vidal. Admission and Anticipated Discharge Date Admission Date: August 22, 2022 Subjective 86, Female admitted 08/22 for rectal bleeding in the setting of mildly supratherapeutic INR on warfarin (A-fib). ASA/warfarin held. Bleeding stopped (most recent 1AM on 08/22. Passed a brown BM late on 08/23 (according to nursing). No mention of pain today (had mentioned right side/back pain yesterday but has denied abd pain). + stool study for campylobacter. Review of Systems Review of Systems: ROS: Gen: Denies weakness, fevers, weight loss Eyes: No eye redness, or pain, no recent vision changes Resp: No SOB, no cough Cardio: No palpitations/irregular beats, no chest pain GI: No abdominal pain, no nausea/vomiting : Denies pain on urination Skin: No jaundice, itching or new rashes Physical Exam Constitutional: WD/WN, vitals as above Eyes: PERRL, conjunctivae normal, anicteric sclerae ENMT: external ear and nose normal, oropharynx normal Neck: trachea midline, no thyromegaly Respiratory: normal respiratory effort, lungs clear to auscultation Cardiovascular: RRR, no murmur, no edema Gastrointestinal (Abdomen): normal bowel sounds, soft, nontender, no hepatosplenomegaly Musculoskeletal: no cyanosis or clubbing, extremities motor strength 5/5 Skin: no rashes, warm and dry Neurologic: PERRL, EOMI, accommodation nl, no face palsy, no dysarthria Psychiatric: A+Ox3, euthymic affect Lymphatic: no cervical or axillary lymphadenopathy Results & Data ([facility]) Vital Signs (Past 12 Hours) Vital Signs Temp Pulse Pulse Resp BP Pulse Ox O2 Del Method 08/24/22 04:00 36.6 C 57 L 18 132/81 96 Room Air 08/23/22 23:00 36.5 C 70 18 120/71 97 Room Air 08/23/22 22:42 66 Laboratory Results Stool + for campylobacter; Stool for C-diff not yet collected. WBC 6, Hb 10.1, Hct 31, Plts 213, PT 12, INR 1, Na 141, K 40, Cl 108, Co2 29, BUn 21, Cr 0.93. Diagnostic Findings Non contrast CTAP 08/23/22: normal.
[2022-08-24] MEDS ORDERED: AZITHROMYCIN 250 MG TAB PO SCH (09:15)
[2022-08-24] MEDS: METOPROLOL TARTRATE 25 MG TAB PO SCH (09:58)
[2022-08-24] MEDS: PANTOprazole 40 MG TAB PO SCH (09:58)
[2022-08-24] MEDS: INSULIN ASPART PER UNIT SC SCH ×2 (09:59→13:02)
--- NOTE | 2022-08-24 11:32 | Discharge Summary ---
Discharge Summary Date of Service August 24, 2022 Notes For Next Care Provider Pt found to have campylobacter infection Daughter states kitchen isn't kept the cleanest Detecting some ?cognitive decline with question/answer sessions with her over series of interviews Consider cognitive status testing Asked daughter to be present at each visit-patient is resistant Coumadin +ASA new since Jul 01. Presumed diverticular bleed, but no colonoscopy performed after bleeding was treated with IV vitamin K and Kcentra on admission Restarted Coumadin + ASA at discharge Needs close followup for INR recheck--one azithro x 3 days so gave the 2mg dose of coumadin Medication Changes From Visit Azithromycin 500mg x 3 days total Admission HPI Per Admitting Provider History obtained from patient, family, and records. Medical history significant for CAD, PVD, A-fib (asymptomatic TBS as per records) on Coumadin, valvular heart disease (mild MR/TR ), pulmonary hypertension, hypertension, hyperlipidemia, GERD, diverticulosis, DM 2 diet- controlled, hypothyroidism, chronic back pain, chronic anemia (baseline hemoglobin of 11). Last confinement January 2019 for NSTEMI. Mild CAD on cardiac catheterization. Patient has had 8 bloody bowel movements today without unusual abdominal pain symptoms. No chest pain, no SOB. Mild dizziness. No fever, no chills, no recent antibiotics. No nausea, no emesis. No prior episodes. No OTC NSAID intake no recent antibiotic Rx. Patient brought to ER for evaluation. IV vitamin K and Kcentra administered at the ER for Coumadin coagulopathy. 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 Admission Exam Per Admitting Provider Physical Exam: GENERAL: Comfortable, pleasant, slightly hard of hearing, no respiratory distress SKIN: Pallor, warm HEENT: Bespectacled, pale palpebral conjunctivae, no ptosis, dry buccal mucosa NECK : Supple, no tenderness CHEST : CTA, no tenderness HEART : Irregular, no obvious murmurs ABDOMEN: Some distention, nontender EXTREMITIES : No LE swelling/tenderness, no other conspicuous deformities noted NEUROLOGIC : Coherent, no facial asymmetry, slightly hard of hearing, no other gross focality Principal Dx & Hospital Course #1 = Principal Diagnosis (1) Acute lower GI bleeding: Bloody diarrhea symptoms in the setting of Coumadin coagulopathy, history A-fib Status post vitamin K/Kcentra administration at the ER. History GERD/diverticulosis as per records No further bleeding and had a normal BM Per GI, this was likely a diverticular bleed possibly worsened by coumadin that is self limited and has stopped. No endoscopy was recommended Treatment for campylobacter was given (2) Campylobacter diarrhea: Reported "weeks" of diarrhea. Azithromycin x 3 days. (3) Acute blood loss anemia: Baseline H&H is 12.3/38.4 on arrival. She has decreased by 2 g of hemoglobin to 10.5/33 and was initially lightheaded on standing. Orthostatics were checked and negative and H/H remained stable. She continues on IV fluids at this time. Pending GI recommendations. Trend CBC. (4) Hypertension: Chronic, controlled but on the low side. She continues on losartan 25 mg p.o. nightly. Blood pressure currently 107/69. Will trend orthostatics and may consider holding losartan if she continues to bleed. (5) PAF (paroxysmal atrial fibrillation): She was first diagnosed with this in April 2022 and was started on Eliquis 2.5 twice daily. She was continued on aspirin 81 mg daily for known coronary heart disease. Unfortunately apixaban was cost prohibitive and she was switched to Coumadin and has been following with the anticoagulation clinic since that time. Coumadin has been held and rate is controlled with home metoprolol. Restarting coumadin at discharge as patient is in atrial fibrillation and has been since arrival. (6) CAD (coronary artery disease): Chronic, stable. Restarted baby aspirin and continue Lipitor, Cozaar, metoprolol per home regimen. Plan I spoke with her daughter, Anne on 08/23 evening about the plan and again spoke with her daughter, Asha, at time of discharge. I explained that her H/H was stable and there was no further bleeding per rectum. A PCP followup appointment was scheduled to monitor this after restarting the coumadin today. Coumadin is being given daily at the lower dose given the known interaction between this and azithromycin, which she will continue for two more days to clear the campylobacter infection. INR and ?CBC should be rechecked on followup later this week. She verbalized understanding with intent to comply. Discharge Exam CONSTITUTIONAL: WNWD, vitals as above, generally well-appearing, NAD EYES: normal conjunctivae, no scleral icterus ENT: external ear and nose normal, NECK: trachea midline RESPIRATORY: clear to auscultation bilaterally, no crackles, rales or wheezes, normal respiratory effort CARDIOVASCULAR: irregular rate and irregular rhythm, S1 and 2 heard without murmurs, gallops or rubs, no JVD, no peripheral edema CHEST: inspection of chest was normal GASTROINTESTINAL: soft, nontender, ND, no guarding MUSCULOSKELETAL: strength 5/5 throughout, head is normocephalic and atraumatic SKIN: warm and dry NEUROLOGIC: CN 2-12 grossly intact, no sensory deficit, normal cognition, normal speech, no tremor PSYCHIATRIC: alert cooperative and oriented to person, place and time. Euthymic mood, makes good eye contact, language grossly intact, recent and remote memory grossly intact. Updated Medication List Medication Instructions Recorded Confirmed Type aspirin 81 mg tablet,delayed 81 mg PO DAILY 03/21/18 08/22/22 History release omeprazole 20 mg capsule,delayed 20 mg PO BID 10/15/18 08/22/22 History release diclofenac sodium 1 % topical gel 2 g topical BID PRN Pain 01/25/19 08/22/22 History lactase 3,000 unit tablet 3,000 unit PO AC PRN gi upset 01/25/19 08/22/22 History nitroglycerin 0.4 mg sublingual 0.4 mg sublingual DIRECTED PRN 01/25/19 08/22/22 History tablet Angina tramadol 50 mg tablet 50 mg PO Q6 PRN Pain 01/25/19 08/22/22 History atorvastatin 20 mg tablet 20 mg PO HS 07/10/19 08/22/22 History losartan 25 mg tablet 25 mg PO HS 02/10/21 08/22/22 History multivit with 1 tab PO QAM 02/10/21 08/22/22 History kmzbchfv-tzgz-JA-lutein 8 mg iron-400 mcg-300 mcg tablet (Multivitamin Women 50 Plus) cyanocobalamin (vitamin B-12) 1,000 mcg IM DIRECTED 03/06/22 08/22/22 History 1,000 mcg/mL injection solution gabapentin 300 mg capsule 300 mg PO HS 03/06/22 08/22/22 History biotin 10 mg tablet 10 mg PO Q OTHER DAY 08/22/22 08/22/22 History cholecalciferol (vitamin D3) 50 50 mcg PO DAILY 08/22/22 08/22/22 History mcg (2,000 unit) capsule (Vitamin D3) metoprolol tartrate 25 mg tablet 12.5 mg PO BID 08/22/22 08/22/22 History omega-3 fatty acids 1,000 mg 1,000 mg PO DAILY 08/22/22 08/22/22 History capsule azithromycin 250 mg tablet 500 mg PO QAM #4 tabs 08/24/22 Rx warfarin 2 mg tablet 2 mg PO QPM #20 tabs 08/24/22 08/22/22 Rx Hospital Stay Data Consultations 08/23/22 00:45 Consult Gastroenterology Routine Diagnostic Imagining Performed 08/23/22 11:24 CT Abd and Pelvis [CT abd pelvis wo con] Routine Discharge Instructions Given to Patient (Per Discharging Provider) Please take all medications as instructed on discharge list below. Please followup with your primary care provider on Tuesday as scheduled. This is a post hospital visit that will be important to assess if any further blood per rectum is occurring, to make sure you are improved after antibiotic therapy, and to recheck your INR. Coumadin has been restarted and you should continue with this daily until further guidance by your primary care team/anticoagulation pharmacist. Please ensure all surfaces in your food prep areas are washed thoroughly, such as cutting boards that may be used for raw poultry. Please avoid unpasteurized dairy products. It was a pleasure taking care of you! Please call if you have any questions or problems. You can reach a [facility] hospitalist on duty at [facility] 24 hours a day by calling [phone]. Take care of yourself. Brianda Vidal, [facility] Hospitalist Total Time Total Time Spent Total Time Spent (In Minutes): 60
--- NOTE | 2022-08-24 13:30 | Communication Note ---
Date of Service: August 24, 2022 Was contacted that daughter spoke w pt on phone, that pt c/o abd pain and didn't sound well. I spoke w the pt, re-examined. She reports migratory (initially lower mid abd then right mid abd) level 2 of 10 discomfort this morning. She appears well. Tolerated a regular consistency lunch - was very happy to get food. Pt noted the cramping started after Zithromax and had a little nausea w that pill as well. Pt reports one BM in past 24 hrs, diarrhea, brown. On exam, abd soft, non tender or very minimally tender in mentioned areas. BS normal. Pt appears well. Explained to the pt that she has Campylobacter which likely caused the bloody diarrhea and will likely have mild cramping pain with that for a few days. Also explained that as the pt suspected, the zithromax can cause cramping. Daughters concerns discussed with Dr. Vidal and Dr. Pablo.
--- NOTE | 2022-08-25 09:32 | Coding Query ---
CODING QUERY To promote full compliance with coding requirements relating to patient care, provider participation is requested in all cases of water maintenance supervisor uncertainty. Please assist us with the question(s) below: Coding Question(s): Acute Lower GI bleeding is documented and, the 08/23 Progress Note has an addendum documenting, "warfarin associated bleeding", the GI Consultation documents, "Acute lower GI bleeding: This is clinically suggestive of a diverticular bleed. She had diverticulosis on colonoscopy in February 2021", and, "He bleeding was likely potentiated by her slightly supra therapeutic INR, and bleeding seems to have stopped", and, "As stated in the note, suspect this is a self limited diverticular bleed triggered by a higher INR", and then the GI Progress Note on 08/24 documents, "Pt mentions that the diarrhea preceded the onset of rectal bleed. The etiology of the rectal bleed may be Campylobacter vs. a diverticular bleed", however, the 08/24 Communication Note by GI documents, "Explained to the pt that she has Campylobacter which likely caused the bloody diarrhea", and the Discharge Summary (currently in I-signed status), documents, Campylobacter diarrhea under #2 listed diagnosis, and documents under #1 listed diagnosis, "Acute lower GI bleeding: Bloody diarrhea symptoms in the setting of Coumadin coagulopathy, history A-fib Status post vitamin K/Kcentra administration at the ER. History GERD/diverticulosis as per records". It is not clear, the possible source(s) of Acute Lower GI Bleeding. Please Specify below, in your clinical opinion, the possible source(s): ( x) most likely due to Campylobacter Diarrhea, and Coumadin Coagulopathy, and/or possible Diverticular bleed ( ) most likely due to Campylobacter Diarrhea, and Coumadin Coagulopathy - the possible Diverticular Bleed is Ruled-Out ( ) Other: Please Specify Physician's Response(s): Thank you Lizzie Dumas Principal Diagnosis: "that condition established after study, to be chiefly responsible for occasioning the admission of the patient to the hospital for care." Co-Existing Principal Diagnosis: "when two or more diagnoses equally meet the criteria for principal diagnosis as determined by the circumstances of admission, diagnostic work up, and/or therapy provided, and the Alphabetic Index, Tabular List, or another coding guideline does not provide sequencing direction, any one of the diagnoses may be sequenced first." "When the physician has documented what appears to be a current diagnosis in the body of the record, but has not included the diagnosis in the final diagnostic statement, the physician should be asked whether the diagnosis should be added." (Source Coding Clinic 2 QTR90. p3-4) LUANNE
== END 2022-08-24 16:56 | disposition home or self-care (01) | DRG 371 ==
LOC: ED 19:17 → 2N 22:43